=== PATIENT | female | born 1990 | race Caucasian/White ===

== ENCOUNTER → 2016-05-26 | Outpatient (CLI) | payer MEDICAID, OTHER ==
[~2016-05-26] MED LIST: CALNTAB; CITA20TA4 PO; IBUP-232 PO; PREN1TAB PO; ZOFR4TAB3 SL
== END ==
LOC: HPND 12:49
PROVIDERS: ATTEND Obstetrics & Gynecology
DX: O09.32 Supervision of pregnancy with insufficient antenatal care, second trimester (principal); O34.82 Maternal care for other abnormalities of pelvic organs, second trimester; O09.212 Supervision of pregnancy with history of pre-term labor, second trimester; Z3A.20 20 weeks gestation of pregnancy
CPT/HCPCS: 76811

== ENCOUNTER 2016-05-29 21:07 | Observation (INO) | payer MEDICAID ==
[2016-05-29] VITALS (10 sets, daily range): BP systolic 129–155; BP diastolic 42–44; PULSE 95–104
[~2016-05-29] VITALS: Ht 167.6 cm; Wt 140.6 kg
[~2016-05-29 21:07] MED LIST changes: -CITA20TA4 PO; -IBUP-232 PO
[2016-05-29] MEDS: LACTATED RINGER'S 1000 ML INJ 1,000 ML IV SCH (22:03)
--- NOTE | 2016-05-29 22:11 | PD ---
HPI Chief Complaint vaginal bleeding Travel History International Travel<30 Days: No Contact w/Intl Traveler<30Days: No History of Present Illness HPI 25 yo @ 21w1d with CHUCKY 10-08-2016. care at [facility]. complicated by late care, maternal obesity, prior , and noted oligohydramnios at 20 weeks with 2.7cm ERIC. Suboptimal visualization of anatomy at that time. Patient was scheduled for f/u US in one week. Patient presented to the [facility] with c/o a "gush of fluid/blood" and continued light bleeding. She denies cramping, pain. +FM. History Past Medical History Medical History: Denies Significant Hx Obstetric History Obstetric History 2009 Past Surgical History Narrative Surgical Family History Family History: Negative Social History Alcohol Use: No Tobacco Use: Yes Substance Abuse: Yes Allergies-Medications (Allergen,Severity, Reaction): Coded Allergies: No Known Allergies (Verified , 04/29/16) Home Meds Reported Medications Vitamin (Calna)1 Tab Tab 04/29/16 Discontinued Scripts Ondansetron Odt (Zofran Odt)4 Mg Tab4 Mg SL Q6HR PRN (Nausea/Vomiting) #30 TAB Ref 0 Prov:Phylicia Mora CNM [facility] 05/05/16 W/ Calcium-Vit B6-Vit (Prenate Am 1 mg)1 Tab Tab1 Tab PO DAILY #30 BOTTLE Ref 5 Prov:Elle Crawford [facility] 04/29/16 Review of Systems General / Constitutional: No: Fever, Chills Eyes: No: Blurred Vision, Visual changes HENT: No: Headaches, Lightheadedness Cardiovascular: No: Irregular Rhythm, Chest Pain or Discomfort, Palpitations Respiratory: No: Cough, Short of Breath Gastrointestinal: No: Nausea, Vomiting, Diarrhea, Abdominal Pain Genitourinary: Vaginal Bleeding, No: Urgency, Frequency, Dysuria, Discharge Musculoskeletal: No: Limited ROM, Weakness, Cramping, Edema Skin: No Rash, No Itching, No Lesions Neurologic: No: Focal Abnormalities, Coordination Problem Hematologic/Lymphatic: No Easy Bruising, No Lymph Node Enlargement Physical Exam Vital Signs Date Time Temp Pulse Resp B/P Pulse Ox O2 Delivery O2 Flow Rate FiO2 05/29/16 22:40 95 05/29/16 22:36 95 129/44 05/29/16 22:35 96 05/29/16 22:30 98 05/29/16 22:28 98 133/44 05/29/16 22:15 99 05/29/16 22:14 95 155/42 05/29/16 22:10 100 05/29/16 22:05 102 05/29/16 22:00 104 Narrative GENERAL: Well-nourished, well-developed patient. SKIN: Warm and dry. HEAD: Normocephalic and atraumatic. EYES: No scleral icterus. No injection or drainage. ENT: No nasal drainage noted. Mucous membranes pink. Airway patent. NECK: No JVD. CARDIOVASCULAR: Regular rate RESPIRATORY: No accessory muscle use. ABDOMEN/GI: Abdomen soft, non-tender, no rebound, no guarding Gravid GENITOURINARY: External Genitalia: intact and normal in appearance BUS glands: [-] Cervix: grossly normal, no active bleeding from cervical OS, closed Vagina: Small amount of dark blood in posterior vault SVE: closed/thick/high Amnisure ?POS FHT's: 150s EXTREMITIES: No cyanosis or edema. BACK: Nontender without obvious deformity. NEUROLOGICAL: Awake and alert. Motor and sensory grossly within normal limits. Normal speech. Data Data Orders Vital Signs (Adult) .ON ADMISSION (05/29/16 22:01) ^ Labor Status (05/29/16 22:01) Urinalysis - C+S If Indicated (05/29/16 22:01) Wet Prep Profile (05/29/16 22:01) Gc And Chlamydia Pcr (05/29/16 22:01) Pamg-1 Test .ONCE (05/29/16 22:01) Ob (2e) Additional Admit Info (05/29/16 22:02) Place In Observation (05/29/16 ) Diet Liquid (05/30/16 Breakfast) Complete Blood Count With Diff (05/29/16 22:03) Lactated Ringer's 1000 Ml Inj (Lr 1000 M (05/29/16 22:03) Acetaminophen (Tylenol) (05/29/16 22:15) Oarfivkf-Rro-Ojxua-Iron Prenat (Stuartna (05/30/16 09:00) Docusate Sodium (Colace) (05/30/16 09:00) Al-Mag Hy-Si 40-40-4 Mg/Ml Liq (Mag-Al P (05/29/16 22:15) Sodium Chloride 0.9% Flush (Ns Flush) (05/30/16 09:00) Sodium Chloride 0.9% Flush (Ns Flush) (05/29/16 22:15) Zolpidem (Ambien) (05/29/16 22:15) Ondansetron Odt (Zofran Odt) (05/29/16 22:15) Ondansetron Inj (Zofran Inj) (05/29/16 22:15) Us Ob Limited (05/29/16 22:03) Ob/Psych Drug Screen, Urine (05/29/16 22:03) Comprehensive Metabolic Panel (05/29/16 22:03) Labs Laboratory Tests Test 05/29/16 05/29/16 22:05 22:20 White Blood Count 12.7 TH/MM3 (4.0-11.0) Red Blood Count 4.27 MIL/MM3 (4.00-5.30) Hemoglobin 12.3 GM/DL (11.6-15.3) Hematocrit 35.1 % (35.0-46.0) Mean Corpuscular Volume 82.2 FL (80.0-100.0) Mean Corpuscular Hemoglobin 28.9 PG (27.0-34.0) Mean Corpuscular Hemoglobin 35.2 % Concent (32.0-36.0) Red Cell Distribution Width 13.6 % (11.6-17.2) Platelet Count 229 TH/MM3 (150-450) Mean Platelet Volume 8.2 FL (7.0-11.0) Neutrophils (%) (Auto) 66.6 % (16.0-70.0) Lymphocytes (%) (Auto) 24.5 % (9.0-44.0) Monocytes (%) (Auto) 4.8 % (0.0-8.0) Eosinophils (%) (Auto) 3.8 % (0.0-4.0) Basophils (%) (Auto) 0.3 % (0.0-2.0) Neutrophils # (Auto) 8.5 TH/MM3 (1.8-7.7) Lymphocytes # (Auto) 3.1 TH/MM3 (1.0-4.8) Monocytes # (Auto) 0.6 TH/MM3 (0-0.9) Eosinophils # (Auto) 0.5 TH/MM3 (0-0.4) Basophils # (Auto) 0.0 TH/MM3 (0-0.2) CBC Comment DIFF FINAL Differential Comment Clue Cells (Wet Prep) NONE SEEN (NONE) Vaginal Trichomonas (Wet Prep) NONE SEEN (NONE) Vaginal Yeast (Wet Prep) NONE SEEN (NONE) Sodium Level 137 MEQ/L (136-145) Potassium Level 3.8 MEQ/L (3.5-5.1) Chloride Level 102 MEQ/L (98-107) Carbon Dioxide Level 24.3 MEQ/L (21.0-32.0) Anion Gap 11 MEQ/L (5-15) Blood Urea Nitrogen 5 MG/DL (7-18) Creatinine 0.54 MG/DL (0.50-1.00) Estimat Glomerular Filtration 138 ML/MIN Rate (>89) Random Glucose 97 MG/DL (74-106) Calcium Level 8.9 MG/DL (8.5-10.1) Total Bilirubin 0.2 MG/DL (0.2-1.0) Aspartate Amino Transf 7 U/L (15-37) (AST/SGOT) Alanine Aminotransferase 12 U/L (10-53) (ALT/SGPT) Alkaline Phosphatase 95 U/L (45-117) Total Protein 6.7 GM/DL (6.4-8.2) Albumin 2.7 GM/DL (3.4-5.0) Band and Hold Urine Color YELLOW (YELLW/STRAW) Urine Turbidity CLEAR (CLEAR) Urine pH 6.0 (5.0-8.5) Urine Specific [place] 1.028 (1.002-1.035) Urine Protein TRACE mg/dL (NEG-TRACE) Urine Glucose (UA) NEG mg/dL (NEG) Urine Ketones NEG mg/dL (NEG) Urine Occult Blood SMALL (NEG) Urine Nitrite NEG (NEG) Urine Bilirubin NEG (NEG) Urine Urobilinogen 2.0 MG/DL (LESS THAN 2.0) Urine Leukocyte Esterase NEG (NEG) Urine RBC 1 /hpf (0-3) Urine WBC 1 /hpf (0-5) Urine Squamous Epithelial <1 /hpf (0-5) Cells Urine Mucus FEW /lpf (OCC) Microscopic Urinalysis Comment CULT NOT INDICATED Urine Opiates Screen NEG (NEG) Urine Barbiturates Screen NEG (NEG) Urine Amphetamines Screen NEG (NEG) Urine Benzodiazepines Screen NEG (NEG) Urine Cocaine Screen NEG (NEG) Urine Cannabinoids Screen POS (NEG) MDM Medical Record Reviewed: Yes Narrative Course / MDM 21 weeks Late PNC hx oligohydramnios @ 20 weeks vaginal bleeding vs PPROM, Amnisure POS GC/CH pending Wet prep pending IV hydration Repeat US in AM Obesity Borderline BP in [facility] CBC, CMP, RH pending Prior Plan Admit IV hydration Pad count for bleeding, now seems to be resolved ?ROM Hx of oligohydramnios Repeat US in AM Darlin Hunter MD May 29, 2016 22:11
[2016-05-29] MEDS ORDERED: SODIUM CHLORIDE 0.9% FLUSH 10 ML FLUSH IV FLUSH PRN (22:15)
[2016-05-29] MEDS ORDERED: ONDANSETRON HCL 4 MG/2 ML VIAL IV PRN (22:15)
[2016-05-29] MEDS ORDERED: ALUMINUM/MAGNESIUM/SIMETH 30 ML CUP PO PRN (22:15)
[2016-05-29] MEDS ORDERED: ZOLPIDEM TARTRATE 5 MG TAB PO PRN (22:15)
[2016-05-29] MEDS ORDERED: ONDANSETRON ODT 4 MG TAB PO PRN (22:15)
[2016-05-29] MEDS ORDERED: ACETAMINOPHEN 325 MG TAB PO PRN (22:15)
[2016-05-29 22:39] LABS: AUTOMATED NEUTROPHIL # 8.5 TH/MM3 (1.8-7.7); BASOPHIL % 0.3 % (0.0-2.0); EOSINOPHIL # 0.5 TH/MM3 (0-0.4); EOSINOPHIL % 3.8 % (0.0-4.0); HEMATOCRIT 35.1 % (35.0-46.0); HEMO FLAGS DIFF FINAL; LYMPH % 24.5 % (9.0-44.0); LYMPHOCYTE # 3.1 TH/MM3 (1.0-4.8); MEAN CELL VOLUME 82.2 FL (80.0-100.0); MEAN CORPUSCULAR HEMOGLOBIN 28.9 PG (27.0-34.0); MEAN CORPUSCULAR HGB CONC 35.2 % (32.0-36.0); MONO % 4.8 % (0.0-8.0); NEUT % 66.6 % (16.0-70.0); PLATELET COUNT 229 TH/MM3 (150-450); RED BLOOD COUNT 4.27 MIL/MM3 (4.00-5.30); RED CELL DISTRIBUTION WIDTH 13.6 % (11.6-17.2); WHITE BLOOD COUNT 12.7 TH/MM3 (4.0-11.0)
[2016-05-29 22:47] LABS: ALKALINE PHOSPHATASE 95 U/L (45-117); ALT (GPT) 12 U/L (10-53); ANION GAP 11 MEQ/L (5-15); AST (GOT) 7 U/L (15-37); BICARBONATE 24.3 MEQ/L (21.0-32.0); BLOOD UREA NITROGEN 5 MG/DL (7-18); CHLORIDE 102 MEQ/L (98-107); GLOMERULAR FILTRATION RATE 138 ML/MIN (>89); POTASSIUM 3.8 MEQ/L (3.5-5.1); SODIUM (NA) 137 MEQ/L (136-145); TOTAL BILIRUBIN ADULT 0.2 MG/DL (0.2-1.0)
[2016-05-29 23:12] LABS: BLOOD, URINE SMALL (NEG); COMMENT (UR) CULT NOT INDICATED; CULTURE IF INDICATED CULT NOT INDICATED; GLUCOSE,URINE NEG (NEG); KETONE, URINE NEG (NEG); MUCUS URINE FEW /lpf (OCC); NITRITE,URINE NEG (NEG); SQUAMOUS EPITHELIAL CELL URINE <1 /hpf (0-5); URINE COLOR YELLOW (YELLW/STRAW)
[2016-05-29 23:16] LABS: AMPHETAMINE, URINE NEG (NEG); BARBITURATES, URINE NEG (NEG); COCAINE, URINE NEG (NEG)
--- NOTE | 2016-05-29 23:41 | HHI.HP ---
History & Physical H&P HPI HPI Chief Complaint vaginal bleeding Travel History International Travel<30 Days: No Contact w/Intl Traveler<30Days: No History of Present Illness HPI 25 yo @ 21w1d with CHUCKY 10-08-2016. care at [facility]. complicated by late care, maternal obesity, prior , and noted oligohydramnios at 20 weeks with 2.7cm ERIC. Suboptimal visualization of anatomy at that time. Patient was scheduled for f/u US in one week. Patient presented to the [facility] with c/o a "gush of fluid/blood" and continued light bleeding. She denies cramping, pain. +FM. History (Limited) History Past Medical History Medical History: Denies Significant Hx Obstetric History Obstetric History 2009 Past Surgical History Narrative Surgical Family History Family History: Negative Social History Alcohol Use: No Tobacco Use: Yes Substance Abuse: Yes Allergies-Medications Allergies-Medications (Allergen,Severity, Reaction): Coded Allergies: No Known Allergies (Verified , 04/29/16) Home Meds Reported Medications Vitamin (Calna)1 Tab Tab 04/29/16 Discontinued Scripts Ondansetron Odt (Zofran Odt)4 Mg Tab4 Mg SL Q6HR PRN (Nausea/Vomiting) #30 TAB Ref 0 Prov:Phylicia Mora CNM [facility] 05/05/16 W/ Calcium-Vit B6-Vit (Prenate Am 1 mg)1 Tab Tab1 Tab PO DAILY #30 BOTTLE Ref 5 Prov:Elle Crawford [facility] 04/29/16 ROS Review of Systems General / Constitutional: No: Fever, Chills Eyes: No: Blurred Vision, Visual changes HENT: No: Headaches, Lightheadedness Cardiovascular: No: Irregular Rhythm, Chest Pain or Discomfort, Palpitations Respiratory: No: Cough, Short of Breath Gastrointestinal: No: Nausea, Vomiting, Diarrhea, Abdominal Pain Genitourinary: Vaginal Bleeding, No: Urgency, Frequency, Dysuria, Discharge Musculoskeletal: No: Limited ROM, Weakness, Cramping, Edema Skin: No Rash, No Itching, No Lesions Neurologic: No: Focal Abnormalities, Coordination Problem Hematologic/Lymphatic: No Easy Bruising, No Lymph Node Enlargement Physical Exam Physical Exam Vital Signs Date Time Temp Pulse Resp B/P Pulse Ox O2 Delivery O2 Flow Rate FiO2 05/29/16 22:40 95 05/29/16 22:36 95 129/44 05/29/16 22:35 96 05/29/16 22:30 98 05/29/16 22:28 98 133/44 05/29/16 22:15 99 05/29/16 22:14 95 155/42 05/29/16 22:10 100 05/29/16 22:05 102 05/29/16 22:00 104 Narrative GENERAL: Well-nourished, well-developed patient. SKIN: Warm and dry. HEAD: Normocephalic and atraumatic. EYES: No scleral icterus. No injection or drainage. ENT: No nasal drainage noted. Mucous membranes pink. Airway patent. NECK: No JVD. CARDIOVASCULAR: Regular rate RESPIRATORY: No accessory muscle use. ABDOMEN/GI: Abdomen soft, non-tender, no rebound, no guarding Gravid GENITOURINARY: External Genitalia: intact and normal in appearance BUS glands: [-] Cervix: grossly normal, no active bleeding from cervical OS, closed Vagina: Small amount of dark blood in posterior vault SVE: closed/thick/high Amnisure ?POS FHT's: 150s EXTREMITIES: No cyanosis or edema. BACK: Nontender without obvious deformity. NEUROLOGICAL: Awake and alert. Motor and sensory grossly within normal limits. Normal speech. Data Data Data Orders Vital Signs (Adult) .ON ADMISSION (05/29/16 22:01) ^ Labor Status (05/29/16 22:01) Urinalysis - C+S If Indicated (05/29/16 22:01) Wet Prep Profile (05/29/16 22:01) Gc And Chlamydia Pcr (05/29/16 22:01) Pamg-1 Test .ONCE (05/29/16 22:01) Ob (2e) Additional Admit Info (05/29/16 22:02) Place In Observation (05/29/16 ) Diet Liquid (05/30/16 Breakfast) Complete Blood Count With Diff (05/29/16 22:03) Lactated Ringer's 1000 Ml Inj (Lr 1000 M (05/29/16 22:03) Acetaminophen (Tylenol) (05/29/16 22:15) Autjfkwu-Rtm-Nfutx-Iron Prenat (Stuartna (05/30/16 09:00) Docusate Sodium (Colace) (05/30/16 09:00) Al-Mag Hy-Si 40-40-4 Mg/Ml Liq (Mag-Al P (05/29/16 22:15) Sodium Chloride 0.9% Flush (Ns Flush) (05/30/16 09:00) Sodium Chloride 0.9% Flush (Ns Flush) (05/29/16 22:15) Zolpidem (Ambien) (05/29/16 22:15) Ondansetron Odt (Zofran Odt) (05/29/16 22:15) Ondansetron Inj (Zofran Inj) (05/29/16 22:15) Us Ob Limited (05/29/16 22:03) Ob/Psych Drug Screen, Urine (05/29/16 22:03) Comprehensive Metabolic Panel (05/29/16 22:03) Labs Laboratory Tests Test 05/29/16 05/29/16 22:05 22:20 White Blood Count 12.7 TH/MM3 (4.0-11.0) Red Blood Count 4.27 MIL/MM3 (4.00-5.30) Hemoglobin 12.3 GM/DL (11.6-15.3) Hematocrit 35.1 % (35.0-46.0) Mean Corpuscular Volume 82.2 FL (80.0-100.0) Mean Corpuscular Hemoglobin 28.9 PG (27.0-34.0) Mean Corpuscular Hemoglobin 35.2 % Concent (32.0-36.0) Red Cell Distribution Width 13.6 % (11.6-17.2) Platelet Count 229 TH/MM3 (150-450) Mean Platelet Volume 8.2 FL (7.0-11.0) Neutrophils (%) (Auto) 66.6 % (16.0-70.0) Lymphocytes (%) (Auto) 24.5 % (9.0-44.0) Monocytes (%) (Auto) 4.8 % (0.0-8.0) Eosinophils (%) (Auto) 3.8 % (0.0-4.0) Basophils (%) (Auto) 0.3 % (0.0-2.0) Neutrophils # (Auto) 8.5 TH/MM3 (1.8-7.7) Lymphocytes # (Auto) 3.1 TH/MM3 (1.0-4.8) Monocytes # (Auto) 0.6 TH/MM3 (0-0.9) Eosinophils # (Auto) 0.5 TH/MM3 (0-0.4) Basophils # (Auto) 0.0 TH/MM3 (0-0.2) CBC Comment DIFF FINAL Differential Comment Clue Cells (Wet Prep) NONE SEEN (NONE) Vaginal Trichomonas (Wet Prep) NONE SEEN (NONE) Vaginal Yeast (Wet Prep) NONE SEEN (NONE) Sodium Level 137 MEQ/L (136-145) Potassium Level 3.8 MEQ/L (3.5-5.1) Chloride Level 102 MEQ/L (98-107) Carbon Dioxide Level 24.3 MEQ/L (21.0-32.0) Anion Gap 11 MEQ/L (5-15) Blood Urea Nitrogen 5 MG/DL (7-18) Creatinine 0.54 MG/DL (0.50-1.00) Estimat Glomerular Filtration 138 ML/MIN Rate (>89) Random Glucose 97 MG/DL (74-106) Calcium Level 8.9 MG/DL (8.5-10.1) Total Bilirubin 0.2 MG/DL (0.2-1.0) Aspartate Amino Transf 7 U/L (15-37) (AST/SGOT) Alanine Aminotransferase 12 U/L (10-53) (ALT/SGPT) Alkaline Phosphatase 95 U/L (45-117) Total Protein 6.7 GM/DL (6.4-8.2) Albumin 2.7 GM/DL (3.4-5.0) Band and Hold Urine Color YELLOW (YELLW/STRAW) Urine Turbidity CLEAR (CLEAR) Urine pH 6.0 (5.0-8.5) Urine Specific [place] 1.028 (1.002-1.035) Urine Protein TRACE mg/dL (NEG-TRACE) Urine Glucose (UA) NEG mg/dL (NEG) Urine Ketones NEG mg/dL (NEG) Urine Occult Blood SMALL (NEG) Urine Nitrite NEG (NEG) Urine Bilirubin NEG (NEG) Urine Urobilinogen 2.0 MG/DL (LESS THAN 2.0) Urine Leukocyte Esterase NEG (NEG) Urine RBC 1 /hpf (0-3) Urine WBC 1 /hpf (0-5) Urine Squamous Epithelial <1 /hpf (0-5) Cells Urine Mucus FEW /lpf (OCC) Microscopic Urinalysis Comment CULT NOT INDICATED Urine Opiates Screen NEG (NEG) Urine Barbiturates Screen NEG (NEG) Urine Amphetamines Screen NEG (NEG) Urine Benzodiazepines Screen NEG (NEG) Urine Cocaine Screen NEG (NEG) Urine Cannabinoids Screen POS (NEG) MDM MDM Medical Record Reviewed: Yes Narrative Course / MDM 21 weeks Late PNC hx oligohydramnios @ 20 weeks vaginal bleeding vs PPROM, Amnisure POS GC/CH pending Wet prep pending IV hydration Repeat US in AM Obesity Borderline BP in [facility] CBC, CMP, RH pending Prior Plan Admit IV hydration Pad count for bleeding, now seems to be resolved ?ROM Hx of oligohydramnios Repeat US in AM Darlin Hunter MD May 29, 2016 22:11 Darlin Hunter MD May 29, 2016 23:41
[2016-05-30] VITALS (69 sets, daily range): BP systolic 124–128; BP diastolic 43–61; PULSE 79–96; RESP 16–18; TEMP 98–98.2
[2016-05-30] MEDS: LACTATED RINGER'S 1000 ML INJ 1,000 ML IV SCH (00:48)
[2016-05-30 04:57] LABS: CHLAMYDIA PCR NOT DETECTED (NOT DETECT); NEISSERIA PCR NOT DETECTED (NOT DETECT)
[2016-05-30] MEDS ORDERED: SODIUM CHLORIDE 0.9% FLUSH 10 ML FLUSH IV FLUSH SCH (09:00)
[2016-05-30] MEDS ORDERED: MULTIVIT/MIN/PREN/FOL AC/IRON PRENATAL TAB PO SCH (09:00)
[2016-05-30] MEDS ORDERED: DOCUSATE SODIUM 100 MG CAP PO SCH (09:00)
--- NOTE | 2016-05-30 09:45 | PD.OB.ANTE ---
Subjective Antepartum ROS: Reports: Vaginal bleeding (scant bleeding earlier this AM. No current VB.), movement normal (+), Denies: New complaints, Loss of fluid, Contractions Objective Vital Signs Vital Signs Date Time Temp Pulse Resp B/P Pulse Ox O2 Delivery O2 Flow Rate FiO2 05/30/16 08:55 91 05/30/16 07:00 128/61 05/30/16 07:00 98.0 05/30/16 07:00 16 Lab & Micro Results Test 05/29/16 05/29/16 22:05 22:20 White Blood Count 12.7 TH/MM3 Red Blood Count 4.27 MIL/MM3 Hemoglobin 12.3 GM/DL Hematocrit 35.1 % Mean Corpuscular Volume 82.2 FL Mean Corpuscular Hemoglobin 28.9 PG Mean Corpuscular Hemoglobin 35.2 % Concent Red Cell Distribution Width 13.6 % Platelet Count 229 TH/MM3 Mean Platelet Volume 8.2 FL Neutrophils (%) (Auto) 66.6 % Lymphocytes (%) (Auto) 24.5 % Monocytes (%) (Auto) 4.8 % Eosinophils (%) (Auto) 3.8 % Basophils (%) (Auto) 0.3 % Neutrophils # (Auto) 8.5 TH/MM3 Lymphocytes # (Auto) 3.1 TH/MM3 Monocytes # (Auto) 0.6 TH/MM3 Eosinophils # (Auto) 0.5 TH/MM3 Basophils # (Auto) 0.0 TH/MM3 CBC Comment DIFF FINAL Differential Comment Clue Cells (Wet Prep) NONE SEEN Vaginal Trichomonas (Wet Prep) NONE SEEN Vaginal Yeast (Wet Prep) NONE SEEN Sodium Level 137 MEQ/L Potassium Level 3.8 MEQ/L Chloride Level 102 MEQ/L Carbon Dioxide Level 24.3 MEQ/L Anion Gap 11 MEQ/L Blood Urea Nitrogen 5 MG/DL Creatinine 0.54 MG/DL Estimat Glomerular Filtration 138 ML/MIN Rate Random Glucose 97 MG/DL Calcium Level 8.9 MG/DL Total Bilirubin 0.2 MG/DL Aspartate Amino Transf 7 U/L (AST/SGOT) Alanine Aminotransferase 12 U/L (ALT/SGPT) Alkaline Phosphatase 95 U/L Total Protein 6.7 GM/DL Albumin 2.7 GM/DL Band and Hold Urine Color YELLOW Urine Turbidity CLEAR Urine pH 6.0 Urine Specific [place] 1.028 Urine Protein TRACE mg/dL Urine Glucose (UA) NEG mg/dL Urine Ketones NEG mg/dL Urine Occult Blood SMALL Urine Nitrite NEG Urine Bilirubin NEG Urine Urobilinogen 2.0 MG/DL Urine Leukocyte Esterase NEG Urine RBC 1 /hpf Urine WBC 1 /hpf Urine Squamous Epithelial <1 /hpf Cells Urine Mucus FEW /lpf Microscopic Urinalysis Comment CULT NOT INDICATED Urine Opiates Screen NEG Urine Barbiturates Screen NEG Urine Amphetamines Screen NEG Urine Benzodiazepines Screen NEG Urine Cocaine Screen NEG Urine Cannabinoids Screen POS Chlamydia trachomatis DNA NOT DETECTED (PCR) Neisseria gonorrhoeae DNA NOT DETECTED (PCR) Physical Exam GENERAL: Well-nourished, well-developed patient. CARDIOVASCULAR: Regular rate RESPIRATORY: No accessory muscle use. ABDOMEN/GI: Abdomen soft, non-tender. GENITOURINARY: Current pad, no bleeding US: +FHR US: preliminary reading, awaiting MFM call Assessment and Plan Assessment and Plan Oligohydramnios and vaginal bleeding VB stable. Prior US had noted a separation b/w membranes and possible etiology of current bleeding. Sol placenta and cervix. Continued oligohydramnios 2-3cm Unlikely ROM MFM reading pending Will have MFM formal consultation 06/03 Rh+, labs WNL Darlin Hunter MD May 30, 2016 09:45
--- NOTE | 2016-05-30 14:19 | HHI.PR ---
[employer] Note Note Ultrasound repeated today with no change in ERIC 2.5. Patient still with spotting so amnisure is positive but no visualized fluid noted, ferning negative. Suspect false positive amnisure due to presence of blood. Reevaluation notes negative ferning, no fluid per exam. Dr Moore has also reviewed ultrasound. Will discharge patient with precautions to return to hospital for vaginal bleeding, abdominal pain, fluid per vagina. Oligohydramnios in this previable continues to be concerning and needs close followup. Patient has appointment with M on Thursday at 1:30pm. Ava Naqvi MD May 30, 2016 14:19
--- NOTE | 2016-05-30 14:20 | HHI.DCPOC ---
Discharge Care Plan Diagnosis: (1) Vagina bleeding (2) Oligohydramnios antepartum (3) Separation of chorion and amnion membranes, antepartum Report Symptoms to Your Doctor -Temperate above 100.5 degrees -Redness, of incision or excessive or foul smelling drainage -Unusual pain or calf pain -Increased vaginal bleeding -Painful or difficulty urinating -Feelings of extreme sadness or anxiety after 2 weeks Goals to Promote Your Health * To prevent worsening of your condition and complications * To maintain your health at the optimal level Directions to Meet Your Goals Take your medications as prescribed Follow your dietary instruction Follow activity as directed Ensure plenty of rest for recovery Drink fluids for hydration Keep your appointments as scheduled Take your immunizations and boosters as scheduled If your symptoms worsen call your PCP, if no PCP go to Urgent Care Center or Emergency Room Smoking is Dangerous to Your Health. Avoid second hand smoke Call the 24-hour crisis hotline for domestic abuse at Marycruz Stevens MD R1 May 30, 2016 14:20
--- NOTE | 2016-05-30 14:23 | HHI.DS ---
Admission Date May 29, 2016 at 22:05 Discharge Date: May 30, 2016 Admitting Diagnosis 21 weeks gestation Oligohydramnios Vaginal bleeding Previous section Diagnosis: Brief History 25 yo @ 21w1d with CHUCKY 10-08-2016. care at [facility]. complicated by late care, maternal obesity, prior , and noted oligohydramnios at 20 weeks with 2.7cm ERIC. Suboptimal visualization of anatomy at that time. Patient was scheduled for f/u US in one week. Patient presented to the [facility] with c/o a "gush of fluid/blood" and continued light bleeding. She denies cramping, pain. +FM. Hospital Course at 21 weeks 1 day with oligohydramnios in this . Patient had some mild vaginal bleeding with a false positive amnisure. No other tests were indicative of a rupture membranes with negative ferning and no fluid noted on exam. Patient additionally repeat ultrasound showed no change in her amniotic fluid index. Patient will be discharged home with close follow-up and has an appointment to maternal medicine on Thursday at 1:30. She was given strong precautions to return to the hospital for bright red vaginal bleeding and more than small amounts, possible rupture membranes, or abdominal pain. Pt Condition on Discharge: Good Discharge Disposition: Discharge Home Discharge Instructions Diet Instructions: As Tolerated, No Restrictions Activities You Can Perform: Pelvic Rest, Continue Bedrest (modified bedrest is recommended) Ava Naqvi MD May 30, 2016 14:23
[2016-06-04 09:41] LABS: BATH SALTS (MDPV) UR NEG (NEG); ECSTASY (MDMA) UR NEG (NEG); HEROIN (6-ACETYLMORPHINE) UR NEG (NEG); K2 SPICE UR NEG (NEG); OBMETHADONE UR NEG (NEG); OXYCODONE (PERCODAN) NEG (NEG); PHENCYCLIDINE URINE NEG (NEG)
[2016-06-04 09:42] LABS: GABAPENTIN UR NEG (NEG); HYDROMORPHONE U NEG (NEG)
[2016-06-11] MEDS ORDERED: CITA20TA4 PO (15:07)
== END 2016-05-30 15:15 | disposition home or self-care (01) ==
LOC: HOBED 21:07 → H2EA 22:05
PROVIDERS: ADMIT Obstetrics & Gynecology; ATTEND Obstetrics & Gynecology
DX: Z03.89 Encounter for observation for other suspected diseases and conditions ruled out (principal); O67.8 Other intrapartum hemorrhage; O41.02X0 Oligohydramnios, second trimester, not applicable or unspecified; O99.212 Obesity complicating pregnancy, second trimester; O09.32 Supervision of pregnancy with insufficient antenatal care, second trimester; O99.332 Smoking (tobacco) complicating pregnancy, second trimester; F17.210 Nicotine dependence, cigarettes, uncomplicated; Z3A.21 21 weeks gestation of pregnancy
CPT/HCPCS: 76815; 80053; 80307; 81001; 84112; 85025; 87210; 87491; 87591; 99285; G0378; G0481; J7120; 80348; G0480

== ENCOUNTER 2016-05-31 14:53 | Observation (INO) | payer MEDICAID ==
[~2016-05-31] VITALS: Ht 167.6 cm; Wt 141.0 kg
[~2016-05-31 14:53] MED LIST changes: -PREN1TAB PO; -ZOFR4TAB3 SL
--- NOTE | 2016-05-31 16:14 | HHI.HP ---
HPI Chief Complaint Vaginal bleeding and cramping Date Seen: May 31, 2016 Travel History International Travel<30 Days: No Contact w/Intl Traveler<30Days: No Known Affected Area: No History of Present Illness HPI This patient is 25-year-old white female previous 1 now at 21 weeks ,[facility] who presents for vaginal bleeding and cramping. Patient was here for a 24-hour stay on the and went home on the because she was here for bleeding that decreased to the point of essentially no discharge vaginally and was sent home however the patient says when she went home she was home for less than a day when she started cramping and a bleeding H she describes as" gushing out" blood, the patient was the hospital she had a vaginal bleeding that the amnio sure was unreadable, so no definitive diagnosis of PPROM was made however ultrasounds done on 05/26 and on were consistent with oligohydramnios, with ERIC of 2.7 on 05/26 Para: 1 : 2 History Obstetric History Obstetric History 1 for failure to progress in [facility] Past Surgical History Narrative Surgical 1 Social History Narrative Social History Patient smokes half pack cigarettes a day Alcohol Use: No Tobacco Use: Yes Substance Abuse: No Allergies-Medications (Allergen,Severity, Reaction): Coded Allergies: No Known Allergies (Verified , 04/29/16) Home Meds Reported Medications Vitamin (Calna)1 Tab Tab 04/29/16 Discontinued Scripts Ondansetron Odt (Zofran Odt)4 Mg Tab4 Mg SL Q6HR PRN (Nausea/Vomiting) #30 TAB Ref 0 Prov:Phylicia Mora CNMP 05/05/16 W/ Calcium-Vit B6-Vit (Prenate Am 1 mg)1 Tab Tab1 Tab PO DAILY #30 BOTTLE Ref 5 Prov:Elle Crawford 04/29/16 Review of Systems General / Constitutional: No: Fever, Weight Gain, Chills, Other Eyes: No: Diploplia, Blurred Vision, Visual changes, Pain, Photophobia HENT: No: Headaches, Vertigo, Lightheadedness Cardiovascular: No: Irregular Rhythm, Chest Pain or Discomfort, Palpitations, Tachycardia, Syncope, Varicosities, Edema, Cyanosis Respiratory: No: Cough, Short of Breath, Other Gastrointestinal: Abdominal Pain, No: Nausea, Vomiting, Diarrhea Genitourinary: Vaginal Bleeding, No: Decreased Urinary Output, Oliguria Musculoskeletal: No: Limited ROM, Weakness, Cramping, Edema, Pain Skin: No Rash, No Itching, No Dryness, No Lumps, No Change in Pigmentation, No Change in Nails, No Alopecia, No Lesions Neurologic: No: Weakness, Dizziness, Syncope, Focal Abnormalities, Coordination Problem, Headache, Slurred Speech, Seizures Psychiatric: No: Depression, Suicidal Ideations, Homicidal Ideation Endocrine: No: Heat Intolerance, Cold Intolerance, Polydipsia, Polyuria, Other Physical Exam Narrative GENERAL obese, well-developed patient. In no acute distress SKIN: Warm and dry. HEAD: Normocephalic and atraumatic. EYES: No scleral icterus. No injection or drainage. ENT: No nasal drainage noted. Mucous membranes pink. Airway patent. NECK: Supple, trachea midline. No JVD. CARDIOVASCULAR: Regular rate and rhythm without murmurs, gallops, or rubs. RESPIRATORY: Breath sounds equal bilaterally. No accessory muscle use. BREASTS: Bilateral exam showed no masses , no retractions, no nipple discharge. ABDOMEN/GI: Abdomen soft obese with large pannus, non-tender, bowel sounds present, no rebound, no guarding Gravid to [-20] weeks size Fundal Height: [At umbilicus-] GENITOURINARY: External Genitalia: intact and normal in appearance Vagina was visualized the speculum and there is a small amount of old blood and present in the fornix, no active bleeding noted no blood clots Cervix: [-Closed] Dilatation: [Closed-] Effacement: [-] Thick Station: [-3] Presentation: [vtx by US-] Membranes: [ ruptured] there is no reliable amnio sure present and because of bleeding that's been undoable Otf with patient's history of gushing fluid and blood in the fact that very little fluid seen on ultrasound it is very likely that she has had a rupture the membranes prematurely Uterine Contractions: [none-] FHT's: 133 EXTREMITIES: No cyanosis or edema. BACK: Nontender without obvious deformity. No CVA tenderness. NEUROLOGICAL: Awake and alert. Motor and sensory grossly within normal limits. Five out of 5 muscle strength in all muscle groups. Normal speech. Data Data Orders Ob Poc Ultrasound (05/31/16 ) Labs Ultrasound done at bedside today shows a fetus in the vertex presentation 21 weeks 1 day and size by growth measurements EFW -413 gm , cardiac motion 135, there is marked oligohydramnios only one small pocket of fluid was seen., Placenta grade 0 and left fundal and lateral. Assessment/Plan Assessment and Plan This patient is 25-year-old white female previous 1 now at 21 weeks by good gestational criteria with vaginal bleeding " gushing " as she describes it and marked oligohydramnios in the second trimester, now developing abdominal pain and cramps. With this patient's history is almost certain that she's had PPROM at 21 weeks, we may be able to attempt a fern of the vaginal discharge to confirm that, that test is in process as we speak . Plan to admit the patient for inpatient care for this problem provide IV antibiotics, pain medication as needed and unfortunately it may be that she has a vaginal delivery in the very near future because of this. All these aspects of been described to the patient she understands our evaluation and care Glen Dudley II, MD May 31, 2016 16:14
[2016-05-31] MEDS ORDERED: ONDANSETRON ODT 4 MG TAB PO PRN (16:15)
[2016-05-31] MEDS ORDERED: ONDANSETRON HCL 4 MG/2 ML VIAL IV PRN (16:15)
[2016-05-31] MEDS ORDERED: ALUMINUM/MAGNESIUM/SIMETH 30 ML CUP PO PRN (16:15)
[2016-05-31] MEDS ORDERED: ACETAMINOPHEN 325 MG TAB PO PRN (16:15)
--- NOTE | 2016-05-31 16:47 | PD.OB.ANTE ---
Subjective Interval History Speculum exam done to collect fluid for fern, on visualizing the vagina bloody watery fluid filled the upper vagina and was briskly coming thru the cx, consistent with PPROM , fern was collected but all that was seen was red blood cells no ferns seen Antepartum ROS: Reports: Loss of fluid, Vaginal bleeding Objective Physical Exam GENERAL: Well-nourished, well-developed patient. CARDIOVASCULAR: Regular rate and rhythm without murmurs, gallops, or rubs. RESPIRATORY: Breath sounds equal bilaterally. No accessory muscle use. ABDOMEN/GI: Abdomen soft, non-tender. Fundus: [-] GENITOURINARY: External Genitalia: intact and normal in appearance Cervix: [-] Dilatation: [-] Effacement: [-] Station: [-] Presentation: [-] Membranes: [-] Uterine Contractions: [-] FHT's: Category: [-] Baseline: [-] Reactive: [-] Variability: [-] Decels: [-] EXTREMITIES: No cyanosis or edema, non-tender, without signs of DVT. Assessment and Plan Assessment and Plan This patient is 25-year-old white female previous 1 now at 21 weeks by good gestational criteria with vaginal bleeding " gushing " as she describes it and marked oligohydramnios in the second trimester, now developing abdominal pain and cramps. With this patient's history is almost certain that she's had PPROM at 21 weeks, we may be able to attempt a fern of the vaginal discharge to confirm that, that test is in process as we speak . Plan to admit the patient for inpatient care for this problem provide IV antibiotics, pain medication as needed and unfortunately it may be that she has a vaginal delivery in the very near future because of this. All these aspects of been described to the patient she understands our evaluation and care Glen Dudley II, MD May 31, 2016 16:47
[2016-05-31] MEDS: cefTRIAXone INJ 1,000 MG in SODIUM CHLORIDE 0.9% INJ 100 ML IV SCH (17:30)
[2016-05-31] MEDS: SODIUM CHLORIDE 0.9% FLUSH 10 ML FLUSH IV FLUSH PRN (17:31)
[2016-05-31 18:34] LABS: AUTOMATED NEUTROPHIL # 8.8 TH/MM3 (1.8-7.7); BASOPHIL # 0.1 TH/MM3 (0-0.2); BASOPHIL % 0.4 % (0.0-2.0); EOSINOPHIL # 0.4 TH/MM3 (0-0.4); EOSINOPHIL % 2.9 % (0.0-4.0); HEMO FLAGS DIFF FINAL; LYMPH % 21.3 % (9.0-44.0); LYMPHOCYTE # 2.6 TH/MM3 (1.0-4.8); MEAN CELL VOLUME 83.1 FL (80.0-100.0); MEAN CORPUSCULAR HEMOGLOBIN 28.1 PG (27.0-34.0); MEAN CORPUSCULAR HGB CONC 33.7 % (32.0-36.0); MONO % 4.2 % (0.0-8.0); NEUT % 71.2 % (16.0-70.0); PLATELET COUNT 239 TH/MM3 (150-450); RED BLOOD COUNT 4.57 MIL/MM3 (4.00-5.30); RED CELL DISTRIBUTION WIDTH 13.5 % (11.6-17.2); WHITE BLOOD COUNT 12.3 TH/MM3 (4.0-11.0)
[2016-05-31 18:58] LABS: ANION GAP 12 MEQ/L (5-15); AST (GOT) 9 U/L (15-37); BICARBONATE 21.2 MEQ/L (21.0-32.0); BLOOD UREA NITROGEN 3 MG/DL (7-18); CHLORIDE 103 MEQ/L (98-107); GLOMERULAR FILTRATION RATE 170 ML/MIN (>89); POTASSIUM 3.5 MEQ/L (3.5-5.1); SODIUM (NA) 136 MEQ/L (136-145)
[2016-05-31 19:02] LABS: ALKALINE PHOSPHATASE 96 U/L (45-117); ALT (GPT) 11 U/L (10-53); TOTAL BILIRUBIN ADULT 0.3 MG/DL (0.2-1.0)
[2016-05-31 19:46] VITALS: TEMP 98
[2016-05-31 19:47] VITALS: BP 127/54; PULSE 85; RESP 18
[2016-05-31 20:47] LABS: BLOOD, URINE MOD (NEG); COMMENT (UR) CULT NOT INDICATED; CULTURE IF INDICATED CULT NOT INDICATED; GLUCOSE,URINE NEG (NEG); KETONE, URINE 10 mg/dL (NEG); MUCUS URINE MANY /lpf (OCC); NITRITE,URINE NEG (NEG); PH, URINE 6.5 (5.0-8.5); SQUAMOUS EPITHELIAL CELL URINE 1 /hpf (0-5); URINE COLOR YELLOW (YELLW/STRAW)
[2016-05-31 20:59] LABS: AMPHETAMINE, URINE NEG (NEG); BARBITURATES, URINE NEG (NEG); COCAINE, URINE NEG (NEG)
[2016-05-31] MEDS: SODIUM CHLORIDE 0.9% FLUSH 10 ML FLUSH IV FLUSH SCH (21:34)
[2016-05-31] MEDS: FERROUS SULFATE 325 MG (65 MG ELEMENTAL IRON) TAB PO SCH (21:34)
[2016-05-31 23:23] VITALS: BP 116/45; PULSE 82
[2016-05-31 23:25] VITALS: RESP 18; TEMP 98.4
[2016-06-01] VITALS (7 sets, daily range): BP systolic 134–143; BP diastolic 45–65; PULSE 83–108; RESP 18; TEMP 97.9–98.3
[2016-06-01] MEDS: FERROUS SULFATE 325 MG (65 MG ELEMENTAL IRON) TAB PO SCH (09:15)
[2016-06-01] MEDS: MULTIVIT/MIN/PREN/FOL AC/IRON PRENATAL TAB PO SCH (09:15)
[2016-06-01] MEDS: DOCUSATE SODIUM 100 MG CAP PO SCH (09:15)
[2016-06-01] MEDS: SODIUM CHLORIDE 0.9% FLUSH 10 ML FLUSH IV FLUSH SCH (09:16)
--- NOTE | 2016-06-01 09:21 | PD.OB.ANTE ---
Subjective Interval History Denies feeling any contractions, denies vaginal bleeding, still feeling movement. Denies any fevers or chills. Antepartum ROS: Reports: movement normal, Denies: New complaints, Loss of fluid, Vaginal bleeding, Contractions Objective Vital Signs Vital Signs Date Time Temp Pulse Resp B/P Pulse Ox O2 Delivery O2 Flow Rate FiO2 06/01/16 09:12 18 06/01/16 09:09 98.3 05/31/16 23:25 18 05/31/16 23:25 98.4 05/31/16 23:23 82 116/45 05/31/16 19:47 18 05/31/16 19:47 85 127/54 05/31/16 19:46 98.0 Lab & Micro Results Test 05/31/16 05/31/16 17:15 19:15 White Blood Count 12.3 TH/MM3 Red Blood Count 4.57 MIL/MM3 Hemoglobin 12.8 GM/DL Hematocrit 38.0 % Mean Corpuscular Volume 83.1 FL Mean Corpuscular Hemoglobin 28.1 PG Mean Corpuscular Hemoglobin 33.7 % Concent Red Cell Distribution Width 13.5 % Platelet Count 239 TH/MM3 Mean Platelet Volume 8.3 FL Neutrophils (%) (Auto) 71.2 % Lymphocytes (%) (Auto) 21.3 % Monocytes (%) (Auto) 4.2 % Eosinophils (%) (Auto) 2.9 % Basophils (%) (Auto) 0.4 % Neutrophils # (Auto) 8.8 TH/MM3 Lymphocytes # (Auto) 2.6 TH/MM3 Monocytes # (Auto) 0.5 TH/MM3 Eosinophils # (Auto) 0.4 TH/MM3 Basophils # (Auto) 0.1 TH/MM3 CBC Comment DIFF FINAL Differential Comment Sodium Level 136 MEQ/L Potassium Level 3.5 MEQ/L Chloride Level 103 MEQ/L Carbon Dioxide Level 21.2 MEQ/L Anion Gap 12 MEQ/L Blood Urea Nitrogen 3 MG/DL Creatinine 0.45 MG/DL Estimat Glomerular Filtration 170 ML/MIN Rate Random Glucose 92 MG/DL Calcium Level 8.9 MG/DL Total Bilirubin 0.3 MG/DL Aspartate Amino Transf 9 U/L (AST/SGOT) Alanine Aminotransferase 11 U/L (ALT/SGPT) Alkaline Phosphatase 96 U/L Total Protein 7.1 GM/DL Albumin 2.8 GM/DL Band and Hold Urine Color YELLOW Urine Turbidity CLEAR Urine pH 6.5 Urine Specific [place] 1.025 Urine Protein TRACE mg/dL Urine Glucose (UA) NEG mg/dL Urine Ketones 10 mg/dL Urine Occult Blood MOD Urine Nitrite NEG Urine Bilirubin NEG Urine Urobilinogen LESS THAN 2.0 MG/DL Urine Leukocyte Esterase TRACE Urine RBC 2 /hpf Urine WBC 2 /hpf Urine Squamous Epithelial 1 /hpf Cells Urine Mucus MANY /lpf Microscopic Urinalysis Comment CULT NOT INDICATED Urine Opiates Screen NEG Urine Barbiturates Screen NEG Urine Amphetamines Screen NEG Urine Benzodiazepines Screen NEG Urine Cocaine Screen NEG Urine Cannabinoids Screen POS Physical Exam GENERAL: Well-nourished, well-developed patient. CARDIOVASCULAR: Regular rate and rhythm without murmurs, gallops, or rubs. RESPIRATORY: Breath sounds equal bilaterally. No accessory muscle use. ABDOMEN/GI: Abdomen soft, non-tender. EXTREMITIES: No cyanosis or edema, non-tender, without signs of DVT. Assessment and Plan Assessment and Plan This patient is 25-year-old white female previous 1 now at 21 weeks by good gestational criteria with vaginal bleeding "gushing " as she describes it and marked oligohydramnios (2.7 cm) in the second trimester, now developing abdominal pain and cramps. With this patient's history is almost certain that she's had PPROM at 21 weeks. U/S from 05/27 showed ERIC of 2.7 cm, and small separation of the amnion at the lateral edge of the placenta. Plan as below: PPROM at 21 weeks: -Admit to in-patient. Vaginal bleeding and contractions have resolved (per patient). -Cont intermittent FHTs and [place]. -Continue ABX (Ceftriaxone 1 g q 24 hr, first dose 05/31 at 1700). -Unfortunately it may be that she has a vaginal delivery in the very near future because of this. All these aspects of been described to the patient she understands our evaluation and care. ricky Dudely. Horace Armenta MD R2 Jun 01, 2016 09:21
[2016-06-01] MEDS: SODIUM CHLORIDE 0.9% FLUSH 10 ML FLUSH IV FLUSH PRN (16:58)
[2016-06-01] MEDS: cefTRIAXone INJ 1,000 MG in SODIUM CHLORIDE 0.9% INJ 100 ML IV SCH (16:59)
[2016-06-02] VITALS (11 sets, daily range): BP systolic 138–158; BP diastolic 55–58; PULSE 84–96; RESP 18; TEMP 98.3
[2016-06-02] MEDS: MULTIVIT/MIN/PREN/FOL AC/IRON PRENATAL TAB PO SCH (08:29)
[2016-06-02] MEDS: FERROUS SULFATE 325 MG (65 MG ELEMENTAL IRON) TAB PO SCH ×2 (08:29→21:00)
[2016-06-02] MEDS: DOCUSATE SODIUM 100 MG CAP PO SCH (08:29)
[2016-06-02] MEDS: SODIUM CHLORIDE 0.9% FLUSH 10 ML FLUSH IV FLUSH SCH ×2 (09:56→21:00)
--- NOTE | 2016-06-02 10:43 | PD.OB.ANTE ---
Subjective Diagnosis: (1) Vaginal bleeding Diagnosis: Principal (2) Oligohydramnios antepartum Diagnosis: Secondary Interval History Ms. Epperson was afebrile with stable vital signs overnight. Patient reports continued vaginal bleeding; patient states this is intermittent and based on positional changes. Patient denies contractions or abdominal cramping. Patient reported normal movement this morning. Patient requests ambulation outdoors if possible today. Antepartum ROS: Reports: Vaginal bleeding (Adilson Del Rio MD R2) Objective Vital Signs Vital Signs Date Time Temp Pulse Resp B/P Pulse Ox O2 Delivery O2 Flow Rate FiO2 06/01/16 22:48 18 06/01/16 22:48 98.3 83 143/61 06/01/16 20:21 98.3 18 06/01/16 20:19 88 138/60 06/01/16 12:41 98 134/65 06/01/16 12:41 97.9 18 Lab & Micro Results Test 06/02/16 08:19 Blood Type O POSITIVE Blood Bank Comment Physical Exam GENERAL: Well-nourished, well-developed patient. CARDIOVASCULAR: Regular rate and rhythm without murmurs; normal perfusion RESPIRATORY: CTAB, normal rate ABDOMEN/GI: Abdomen soft, non-tender. Gravid EXTREMITIES: No cyanosis or edema, non-tender, without signs of DVT. GENITOURINARY: (Last exam 05/31) External Genitalia: intact and normal in appearance Cervix: Dilatation: 0 Membranes: Intact Uterine Contractions: None per patient FHT's: (intermittent) Category: 1 Baseline: 145 Reactive: Y (Adilson Del Rio MD R2) Assessment and Plan Problem List: (1) Vaginal bleeding Status: Acute (2) Oligohydramnios antepartum Status: Acute Assessment and Plan 25-year-old previous 1 now at 21 weeks with vaginal bleeding "gushing " abdominal cramping -Oligohydramnios Impression: US 05/27 with DVP 2.7 cm and small separation of amnion at lateral edge of placenta. Repeat US 05/30 with ERIC 2.5 (DVP) -Vaginal bleeding Impression: Suspect secondary to amniotic separation on 05/27 US. Persistent -Positive for cannabinoids -Tobacco abuse Plan: -MFM consultation pending (06/03/2016) -Cont to monitor vaginal bleeding -Cont intermittent FHTs and [place]. -Continue ABX (Ceftriaxone 1 g q 24 hr, first dose 05/31 at 1700). (Adilson Del Rio MD R2) Assessment and Plan 21 weeks early PPROM/chronic severe oligo No current evidence of infection Intermittent VB, stable Awaiting MFM consultation, repeat US (Darlin Hunter MD) Adilson Del Rio MD R2 Jun 02, 2016 10:43 Darlin Hunter MD Jun 05, 2016 04:26
[2016-06-02] MEDS: cefTRIAXone INJ 1,000 MG in SODIUM CHLORIDE 0.9% INJ 100 ML IV SCH (17:26)
[2016-06-03] VITALS (7 sets, daily range): BP systolic 117–140; BP diastolic 24–57; PULSE 78–89; RESP 16–18; TEMP 97.9–98.2
[2016-06-03] MEDS ORDERED: oxyCODONE/ACETAMINOPHEN 5 MG/325 MG TAB PO ONE
--- NOTE | 2016-06-03 00:12 | HHI.PR ---
GAME MASTER Note Note Patient at 21 weeks with known oligohydramnios since 18 weeks readmitted due to Premature rupture of membranes. Had experienced several episodes of vaginal bleeding, all minimal in nature. FHR 145 by doppler, patient is complaining of abdominal cramping. Sterile speculum performed with closed cervix, some blood noted in vault, no active bleeding. Will offer pain medication for the cramping. Patient is, of course, anxious about the course of this , and the possiblities of miscarriage. She is scheduled to see perinatology tomorrow for recommendations. Ava Naqvi MD Jun 03, 2016 00:12
--- NOTE | 2016-06-03 07:27 | PD.OB.ANTE ---
Subjective Diagnosis: (1) Vaginal bleeding Diagnosis: Principal (2) Oligohydramnios antepartum Diagnosis: Principal Interval History Ms. Epperson was afebrile with stable vital signs overnight; isolated SBP 140 but otherwise normotensive. Patient reports feeling uterine contractions last night; patient also reported increased and darker than usual vaginal bleeding. Per EMR, patient evaluated by Dr. Naqvi and speculum exam revealed closed cervix and minimal bleeding. Patient states that she no longer feels contractions this morning after having been given Percocet. Patient does not report other complaints at this time. Objective Vital Signs Vital Signs Date Time Temp Pulse Resp B/P Pulse Ox O2 Delivery O2 Flow Rate FiO2 06/03/16 04:04 78 140/57 06/03/16 04:04 98.0 18 06/03/16 01:00 98.2 06/03/16 00:15 98.2 18 06/03/16 00:14 80 131/45 06/03/16 00:12 86 122/47 06/03/16 00:10 89 117/24 06/02/16 18:50 86 18 06/02/16 18:45 87 06/02/16 18:40 92 06/02/16 18:35 93 06/02/16 18:30 94 06/02/16 18:29 96 158/58 06/02/16 17:31 18 06/02/16 17:30 84 138/55 06/02/16 17:00 18 06/02/16 13:00 98.3 06/02/16 13:00 18 06/02/16 12:33 92 146/56 Lab & Micro Results Test 06/02/16 08:19 Blood Type O POSITIVE Blood Bank Comment Physical Exam GENERAL: Well-nourished, well-developed patient. CARDIOVASCULAR: Regular rate and rhythm without murmurs; normal perfusion RESPIRATORY: CTAB, normal rate ABDOMEN/GI: Abdomen soft, non-tender. Gravid EXTREMITIES: No cyanosis or edema, non-tender, without signs of DVT. GENITOURINARY: (Last exam 06/02 midnight) External Genitalia: intact and normal in appearance Cervix: Dilatation: 0 Membranes: Intact Uterine Contractions: intermittent last night FHT's: (intermittent) Category: 1 Baseline: 145 Reactive: Y Assessment and Plan Problem List: (1) Vaginal bleeding Status: Acute (2) Oligohydramnios antepartum Status: Acute Assessment and Plan 25-year-old previous 1 now at 21 weeks with vaginal bleeding "gushing " abdominal cramping -Oligohydramnios Impression: US 05/27 with DVP 2.7 cm and small separation of amnion at lateral edge of placenta. Repeat US 05/30 with ERIC 2.5 (DVP) -Vaginal bleeding Impression: Suspect secondary to amniotic separation on 05/27 US. Persistent -Positive for cannabinoids -Tobacco abuse Plan: -MFM consultation pending (06/03/2016) -Cont to monitor vaginal bleeding -Cont intermittent FHTs and [place]. -Continue ABX (Ceftriaxone 1 g q 24 hr, first dose 05/31 at 1700). Adilson Del Rio MD R2 Jun 03, 2016 07:27
[2016-06-03] MEDS: DOCUSATE SODIUM 100 MG CAP PO SCH (09:17)
[2016-06-03] MEDS: SODIUM CHLORIDE 0.9% FLUSH 10 ML FLUSH IV FLUSH SCH ×2 (09:17→21:00)
[2016-06-03] MEDS: FERROUS SULFATE 325 MG (65 MG ELEMENTAL IRON) TAB PO SCH ×2 (09:17→22:01)
[2016-06-03] MEDS: MULTIVIT/MIN/PREN/FOL AC/IRON PRENATAL TAB PO SCH (09:17)
[2016-06-03] MEDS: cefTRIAXone INJ 1,000 MG in SODIUM CHLORIDE 0.9% INJ 100 ML IV SCH (17:15)
[2016-06-03] MEDS: SODIUM CHLORIDE 0.9% FLUSH 10 ML FLUSH IV FLUSH PRN (17:16)
[2016-06-03 19:45] LABS: AUTOMATED NEUTROPHIL # 9.4 TH/MM3 (1.8-7.7); BASOPHIL % 0.3 % (0.0-2.0); EOSINOPHIL # 0.4 TH/MM3 (0-0.4); HEMATOCRIT 35.2 % (35.0-46.0); HEMO FLAGS DIFF FINAL; LYMPH % 19.8 % (9.0-44.0); LYMPHOCYTE # 2.5 TH/MM3 (1.0-4.8); MEAN CELL VOLUME 82.5 FL (80.0-100.0); MEAN CORPUSCULAR HEMOGLOBIN 28.6 PG (27.0-34.0); MEAN CORPUSCULAR HGB CONC 34.7 % (32.0-36.0); MONO % 3.8 % (0.0-8.0); NEUT % 73.1 % (16.0-70.0); PLATELET COUNT 255 TH/MM3 (150-450); RED BLOOD COUNT 4.26 MIL/MM3 (4.00-5.30); RED CELL DISTRIBUTION WIDTH 13.3 % (11.6-17.2); WHITE BLOOD COUNT 12.8 TH/MM3 (4.0-11.0)
[2016-06-03] MEDS: ZOLPIDEM TARTRATE 5 MG TAB PO PRN (22:01)
[2016-06-04] VITALS (23 sets, daily range): BP systolic 109–137; BP diastolic 35–70; PULSE 82–97; RESP 16–18; TEMP 97.8–98.2
[2016-06-04] MEDS: DOCUSATE SODIUM 100 MG CAP PO SCH (08:21)
[2016-06-04] MEDS: FERROUS SULFATE 325 MG (65 MG ELEMENTAL IRON) TAB PO SCH (08:21)
[2016-06-04] MEDS: SODIUM CHLORIDE 0.9% FLUSH 10 ML FLUSH IV FLUSH SCH (08:21)
[2016-06-04] MEDS: MULTIVIT/MIN/PREN/FOL AC/IRON PRENATAL TAB PO SCH (08:21)
--- NOTE | 2016-06-04 08:46 | PD.OB.ANTE ---
Subjective Diagnosis: (1) Vaginal bleeding Diagnosis: Principal (2) Oligohydramnios antepartum Diagnosis: Principal Interval History Ms. Epperson was afebrile with stable vital signs overnight. Patient reports that she has had decreased vaginal bleeding but persistent cramping. Patient states that she is doing ok after talking with MFM yesterday regarding prognosis. No shortness of breath, fever/chills, dysuria, leg swelling, or other symptoms at this time. Objective Lab & Micro Results Test 06/03/16 06/03/16 18:15 19:26 Band and Hold White Blood Count 12.8 TH/MM3 Red Blood Count 4.26 MIL/MM3 Hemoglobin 12.2 GM/DL Hematocrit 35.2 % Mean Corpuscular Volume 82.5 FL Mean Corpuscular Hemoglobin 28.6 PG Mean Corpuscular Hemoglobin 34.7 % Concent Red Cell Distribution Width 13.3 % Platelet Count 255 TH/MM3 Mean Platelet Volume 7.9 FL Neutrophils (%) (Auto) 73.1 % Lymphocytes (%) (Auto) 19.8 % Monocytes (%) (Auto) 3.8 % Eosinophils (%) (Auto) 3.0 % Basophils (%) (Auto) 0.3 % Neutrophils # (Auto) 9.4 TH/MM3 Lymphocytes # (Auto) 2.5 TH/MM3 Monocytes # (Auto) 0.5 TH/MM3 Eosinophils # (Auto) 0.4 TH/MM3 Basophils # (Auto) 0.0 TH/MM3 CBC Comment DIFF FINAL Differential Comment Physical Exam GENERAL: Well-nourished, well-developed patient. CARDIOVASCULAR: Regular rate and rhythm without murmurs; normal perfusion RESPIRATORY: CTAB, normal rate ABDOMEN/GI: Abdomen soft, non-tender. Gravid EXTREMITIES: No cyanosis or edema, non-tender, without signs of DVT. GENITOURINARY: (Last exam 06/02 midnight) External Genitalia: intact and normal in appearance Cervix: Dilatation: 0 Membranes: Intact Uterine Contractions: intermittent last night FHT's: (intermittent) -FHR 152 06/03 Assessment and Plan Problem List: (1) Vaginal bleeding Status: Acute (2) Oligohydramnios antepartum Status: Acute Assessment and Plan 25-year-old previous 1 now at 21 weeks with vaginal bleeding "gushing " abdominal cramping -Oligohydramnios Impression: US 06/03 with anhydramnios; no measurable pocket (decreased from prior US 05/30 with ERIC 2.5 (DVP) and US 05/27 with DVP 2.7 cm and small separation of amnion at lateral edge of placenta) -Vaginal bleeding Impression: Suspect secondary to amniotic separation on 05/27 US. Persistent -Positive for cannabinoids -Tobacco abuse Plan: -MFM consulted; patient seen 06/03 -Cont to monitor vaginal bleeding -Cont intermittent FHTs and [place]. -Cont Fentanyl for pain control -Continue ABX Ceftriaxone 1 g q 24 hrs Adilson Del Rio MD R2 Jun 04, 2016 08:46
[2016-06-04] MEDS: cefTRIAXone INJ 1,000 MG in SODIUM CHLORIDE 0.9% INJ 100 ML IV SCH (16:38)
--- NOTE | 2016-06-04 18:39 | PD.OB.ANTE ---
Subjective Diagnosis: (1) Vaginal bleeding Diagnosis: Principal (2) Oligohydramnios antepartum Diagnosis: Principal Interval History Now c/o cramping. No vaginal pressure. No bleeding at this time. No F/C. Objective Vital Signs Vital Signs Date Time Temp Pulse Resp B/P Pulse Ox O2 Delivery O2 Flow Rate FiO2 06/04/16 17:00 98.2 18 06/04/16 16:44 82 136/55 Lab & Micro Results Test 06/03/16 19:26 White Blood Count 12.8 TH/MM3 Red Blood Count 4.26 MIL/MM3 Hemoglobin 12.2 GM/DL Hematocrit 35.2 % Mean Corpuscular Volume 82.5 FL Mean Corpuscular Hemoglobin 28.6 PG Mean Corpuscular Hemoglobin 34.7 % Concent Red Cell Distribution Width 13.3 % Platelet Count 255 TH/MM3 Mean Platelet Volume 7.9 FL Neutrophils (%) (Auto) 73.1 % Lymphocytes (%) (Auto) 19.8 % Monocytes (%) (Auto) 3.8 % Eosinophils (%) (Auto) 3.0 % Basophils (%) (Auto) 0.3 % Neutrophils # (Auto) 9.4 TH/MM3 Lymphocytes # (Auto) 2.5 TH/MM3 Monocytes # (Auto) 0.5 TH/MM3 Eosinophils # (Auto) 0.4 TH/MM3 Basophils # (Auto) 0.0 TH/MM3 CBC Comment DIFF FINAL Differential Comment Physical Exam GENERAL: Well-nourished, well-developed patient. CARDIOVASCULAR: VSS RESPIRATORY: No accessory muscle use. ABDOMEN/GI: Abdomen soft, tender on left lower uterus FHR+ TOCO: UC q 2-4 min Assessment and Plan Problem List: (1) Vaginal bleeding Status: Acute (2) Oligohydramnios antepartum Status: Acute Assessment and Plan 25-year-old @ 22w0d -Oligohydramnios Impression: US 06/03 with anhydramnios; no measurable pocket (decreased from prior US 05/30 with ERIC 2.5 (DVP) and US 05/27 with DVP 2.7 cm and small separation of amnion at lateral edge of placenta) Patient understand poor survivability with early PPROM. s/p MFM consultation. No evidence of infection, patient has been on Abx. -Vaginal bleeding Impression: Suspect secondary to amniotic separation on 05/27 US. Continues intermittent small amounts of bleeding/fluid. Patient continued observation and care secondary to bleeding -Prior Discussed pre-viable and poor prognosis. We will not monitor or perform a for distress -Substance abuse Positive for cannabinoids Tobacco abuse Patient now having regular UC. Discussed delivery, breech fetus. To labor room if dilating. epidural as desires. Darlin Hunter MD Jun 04, 2016 18:39
[2016-06-04] MEDS: ZOLPIDEM TARTRATE 5 MG TAB PO PRN (23:32)
[2016-06-05] VITALS (38 sets, daily range): BP systolic 92–153; BP diastolic 29–80; PULSE 81–108; RESP 16–22; TEMP 98.1–98.8; O2SAT 98–100
[2016-06-05] MEDS ORDERED: MORPHINE SULFATE 8 MG/ML INJ IV PUSH ONE (01:30)
[2016-06-05] MEDS ORDERED: MORPHINE SULFATE 8 MG/ML INJ IM ONE (01:30)
--- NOTE | 2016-06-05 01:42 | PD.OB.ANTE ---
Subjective Diagnosis: (1) Vaginal bleeding Diagnosis: Principal (2) Oligohydramnios antepartum Diagnosis: Principal Interval History Patient having increased pain with contractions. Scant bleeding, occasional LOF. Objective Vital Signs Vital Signs Date Time Temp Pulse Resp B/P Pulse Ox O2 Delivery O2 Flow Rate FiO2 06/05/16 01:20 96 139/71 06/05/16 01:19 22 06/04/16 23:31 98.0 Physical Exam GENERAL: Uncomfortable with UC CARDIOVASCULAR: Regular rate VSS RESPIRATORY: No accessory muscle use. ABDOMEN/GI: Abdomen soft, mild discomfort with deep palpation Unable to palpate UC UC q 5 min per patient. GENITOURINARY: External Genitalia: SVE: FT/50%/-3 mild effacement, vtx presenting part palpated FHT's: 152 Assessment and Plan Problem List: (1) Vaginal bleeding Status: Acute (2) Oligohydramnios antepartum Status: Acute Assessment and Plan 25-year-old @ 22w1d Chronic oligohydramnios with PPROM. Laboring now with UC q 5min. minimal cervical change with some mild effacement. Discussed non-viability and poor prognosis with no fluid since before 20 weeks. Will not monitor in labor and no for indications. MELVIN. Will give IV medications for pain When dilating discussed epidural for pain. Darlin Hunter MD Jun 05, 2016 01:42
--- NOTE | 2016-06-05 06:35 | PD.LABORPN ---
Subjective Subjective Patient got some reset after morphine this AM. Now feeling increased pressure and UC. Vaginal bleeding still very light/scant. Objective Vital Signs Vital Signs Date Time Temp Pulse Resp B/P Pulse Ox O2 Delivery O2 Flow Rate FiO2 06/05/16 03:34 82 18 142/52 06/05/16 02:21 18 06/05/16 01:20 96 139/71 06/05/16 01:19 22 06/04/16 23:32 85 137/44 06/04/16 23:31 98.0 16 Objective Pelvic Exam: 5cm/100/-2 Assessment/Plan Problem List: (1) Vaginal bleeding (2) Oligohydramnios antepartum Assessment and Plan 22w1d early PPROM with severe oligohydramnios Now in labor, will Epidural for anesthesia expectant management Non-viable fetus. Darlin Hunter MD Jun 05, 2016 06:35
[2016-06-05] MEDS ORDERED: fentaNYL 2MCG-BUPIV 0.125% INJ 100 ML ONE (06:45)
[2016-06-05] MEDS ORDERED: OXYTOCIN 30 UNITS-500ML PREMIX 500 ML ONE (07:11)
[2016-06-05] MEDS ORDERED: MISOPROSTOL 200 MCG TAB ONE (07:12)
[2016-06-05] MEDS ORDERED: DO NOT ADMINISTER ANTICOAGULANTS PRN (07:30)
[2016-06-05] MEDS ORDERED: fentaNYL 2MCG-BUPIV 0.125% 100 ML EPIDURAL SCH (07:30)
[2016-06-05] MEDS ORDERED: NO SYSTEM NARCOTICS PRN (07:30)
[2016-06-05] MEDS ORDERED: ePHEDrine/NS 25 MG/5 ML SYR IV PRN (07:30)
[2016-06-05 13:18] LABS: BATH SALTS (MDPV) UR NEG (NEG); ECSTASY (MDMA) UR NEG (NEG); GABAPENTIN UR NEG (NEG); HEROIN (6-ACETYLMORPHINE) UR NEG (NEG); K2 SPICE UR NEG (NEG); OBMETHADONE UR NEG (NEG); OXYCODONE (PERCODAN) NEG (NEG); PHENCYCLIDINE URINE NEG (NEG)
[2016-06-05 13:19] LABS: HYDROMORPHONE U NEG (NEG)
--- NOTE | 2016-06-05 13:20 | PD.OB.DELI ---
Delivery Date: Jun 05, 2016 Anesthesia: Epidural Episiotomy: None Vaginal Delivery: Normal Presentation: Occiput anterior Nuchal Cord: None Delayed cord clamping (45 sec): No : Female One Minute : 1 Five Minute : 1 Weight: 435 g that equals 15 ounces Placenta: Spontaneous delivery Additional Information This 25-year-old 2 para 1 presently at 22 weeks previous 1 admitted with premature rupture of membranes delivered spontaneously over an intact perineum placenta spontaneous and intact There were no lacerations Estimated blood loss approximately 300 cc Uterus firm Pitocin infusing at 1 25 cc an hour No Apgars assigned to this fetus Mother and dad holding baby Radha Mcelroy MD Jun 05, 2016 13:20
[2016-06-05] MEDS ORDERED: IBUPROFEN 600 MG TAB PO PRN (14:00)
[2016-06-05] MEDS ORDERED: WITCH HAZEL 50%/GLYCERIN 12.5% 40 PAD JAR TOPICAL PRN (14:00)
[2016-06-05] MEDS ORDERED: BENZOCAINE 20% TOPICAL SPRAY 60 ML CAN TOPICAL PRN (14:00)
[2016-06-05] MEDS ORDERED: DIPHTH/TETANUS/ACEL PERTUSSIS (BOOSTER) 0.5 ML VIAL/PFS IM ONE (16:00)
[2016-06-05] MEDS ORDERED: MEASLES, MUMPS, RUBELLA VACCINE 0.5 ML VIAL SQ ONE (16:00)
[2016-06-05] MEDS: ceFAZolin 2 GM PREMIX 50 ML IV SCH (20:17)
[2016-06-06 02:06] VITALS: RESP 16
[2016-06-06 02:08] VITALS: BP 135/57; PULSE 69
[2016-06-06 04:41] VITALS: TEMP 98.2
[2016-06-06 04:44] VITALS: BP 128/60; PULSE 71
[2016-06-06 04:45] VITALS: RESP 16
[2016-06-06] MEDS: ceFAZolin 2 GM PREMIX 50 ML IV SCH (07:55)
--- NOTE | 2016-06-06 10:08 | HHI.DCPOC ---
Discharge Care Plan Diagnosis: (1) delivery, delivered Report Symptoms to Your Doctor -Temperate above 100.5 degrees -Redness, of incision or excessive or foul smelling drainage -Unusual pain or calf pain -Increased vaginal bleeding -Painful or difficulty urinating -Feelings of extreme sadness or anxiety after 2 weeks Goals to Promote Your Health * To prevent worsening of your condition and complications * To maintain your health at the optimal level Directions to Meet Your Goals Take your medications as prescribed Follow your dietary instruction Follow activity as directed Ensure plenty of rest for recovery Drink fluids for hydration Keep your appointments as scheduled Take your immunizations and boosters as scheduled If your symptoms worsen call your PCP, if no PCP go to Urgent Care Center or Emergency Room Smoking is Dangerous to Your Health. Avoid second hand smoke Call the 24-hour crisis hotline for domestic abuse at Adilson Del Rio MD R2 Jun 06, 2016 10:08
[2016-06-06] MEDS ORDERED: IBUP-232 PO (10:11)
--- NOTE | 2016-06-06 10:13 | HHI.OB ---
Objective Vitals/I&O Vital Signs Date Time Temp Pulse Resp B/P Pulse Ox O2 Delivery O2 Flow Rate FiO2 06/06/16 04:45 16 06/06/16 04:44 71 128/60 06/06/16 04:41 98.2 06/06/16 02:08 69 135/57 06/06/16 02:06 16 06/05/16 22:31 98.1 81 16 06/05/16 22:31 118/39 06/05/16 19:30 90 142/56 06/05/16 19:29 98.3 18 06/05/16 15:31 87 129/60 06/05/16 15:18 98.8 20 06/05/16 15:17 91 147/72 06/05/16 13:31 98 92/42 06/05/16 13:00 105 146/63 06/05/16 12:31 86 127/53 06/05/16 12:00 91 135/59 06/05/16 11:30 89 139/58 06/05/16 11:00 88 136/62 06/05/16 10:30 81 130/63 Objective Remarks GENERAL: Well-nourished, well-developed patient. CARDIOVASCULAR: Regular rate and rhythm without murmurs, gallops, or rubs. RESPIRATORY: Breath sounds equal bilaterally. No accessory muscle use. ABDOMEN/GI: Abdomen soft, non-tender. Fundus: Firm, non-tender at umbilicus. GENITOURINARY: Light to moderate bleeding. EXTREMITIES: No cyanosis or edema, non-tender, without signs of DVT. Medications and IVs Current Medications Medications (Trade) Dose Ordered Sig/Leia Route Start Time Stop Time Status Last Admin (Tylenol) 650 mg Q4H PRN PO 05/31/16 16:15 (Stuartnatal Plus 3 ) 1 tab DAILY PO 06/01/16 09:00 06/04/16 08:21 (Colace) 100 mg DAILY PO 06/01/16 09:00 06/04/16 08:21 (Mag-Al Plus Susp Liq) 30 ml QID PRN PO 05/31/16 16:15 (NS Flush) 2 ml BID IV FLUSH 05/31/16 21:00 06/04/16 08:21 (NS Flush) 2 ml UNSCH PRN IV FLUSH 05/31/16 16:15 06/03/16 17:16 (Ambien) 5 mg HS PRN PO 05/31/16 16:15 06/04/16 23:32 (Zofran Odt) 4 mg Q6H PRN PO 05/31/16 16:15 (Zofran Inj) 4 mg Q6H PRN IV 05/31/16 16:15 06/05/16 01:44 Ferrous Sulfate 325 mg 325 mg BID PO 05/31/16 21:00 06/04/16 08:21 (Rocephin Inj/NS Inj) 100 ml @ 200 mls/hr Q24H IV 05/31/16 17:00 06/04/16 16:38 Fentanyl Citrate 50 mcg 50 mcg Q3H PRN IV PUSH 05/31/16 20:15 06/05/16 05:13 (fentaNYL 2MCG-BUPIV 0.125% INJ) 100 ml @ 0 mls/hr TITRATE EPIDURAL 06/05/16 07:30 (Motrin) 600 mg Q6H PRN PO 06/05/16 14:00 (Americaine 20% Top Spr) 1 spray Q4H PRN TOPICAL 06/05/16 14:00 Witch Tracy/ Glycerin 1 applic 1 applic QID PRN TOPICAL 06/05/16 14:00 (Ancef 2 Gm Premix) 50 ml @ 100 mls/hr Q12H IV 06/05/16 20:00 06/06/16 07:55 Assessment/Plan Problem List: (1) Vaginal bleeding (2) Oligohydramnios antepartum Assessment and Plan 21 weeks early PPROM/chronic severe oligo No current evidence of infection Intermittent VB, stable Awaiting MFM consultation, repeat US Adilson Del Rio MD R2 Jun 06, 2016 10:13
--- NOTE | 2016-06-06 11:32 | HHI.OB ---
Subjective Post Day: 1 Remarks Ms. Epperson is PPD1 from delivery of 22 week gestation. Afebrile with stable vital signs overnight. Patient and her were visited while holding infant; crying but consolable. Ms. Epperson did not have any new complaints at this time. No significant bleeding or abdominal pain. Ambulating and urinating well. No shortness of breath. Objective Vitals/I&O Vital Signs Date Time Temp Pulse Resp B/P Pulse Ox O2 Delivery O2 Flow Rate FiO2 06/06/16 04:45 16 06/06/16 04:44 71 128/60 06/06/16 04:41 98.2 06/06/16 02:08 69 135/57 06/06/16 02:06 16 06/05/16 22:31 98.1 81 16 06/05/16 22:31 118/39 06/05/16 19:30 90 142/56 06/05/16 19:29 98.3 18 06/05/16 15:31 87 129/60 06/05/16 15:18 98.8 20 06/05/16 15:17 91 147/72 06/05/16 13:31 98 92/42 06/05/16 13:00 105 146/63 06/05/16 12:31 86 127/53 06/05/16 12:00 91 135/59 06/05/16 11:30 89 139/58 Objective Remarks GENERAL: Well-nourished, well-developed patient. CARDIOVASCULAR: Normal perfusion grossly RESPIRATORY: Normal rate; no distress ABDOMEN/GI: Abdomen soft, non-tender. GENITOURINARY: Light bleeding. EXTREMITIES: No edema; without signs of DVT. Assessment/Plan Problem List: (1) Vaginal bleeding (2) Oligohydramnios antepartum Assessment and Plan 25-year-old who is PPD1 from delivery at 22 weeks (PPROM-> labor; Oligohydramnios persistent on US) -Patient had received pre and post delivery Cefazolin to prophylax against infection risks following PPROM -No significant bleeding or pain -VS stable -1 week follow-up recommended Adilson Del Rio MD R2 Jun 06, 2016 11:32
[2016-06-11] MEDS ORDERED: CITA20TA4 PO (15:07)
== END 2016-06-06 10:24 | disposition home or self-care (01) ==
LOC: HOBED 14:53 → H2EA 16:07
PROVIDERS: ADMIT Obstetrics & Gynecology Maternal & Fetal Medicine; ATTEND Obstetrics & Gynecology Maternal & Fetal Medicine
DX: O60.12X1 Preterm labor second trimester with preterm delivery second trimester, fetus 1 (principal); O42.912 Preterm premature rupture of membranes, unspecified as to length of time between rupture and onset of labor, second trimester; O46.92 Antepartum hemorrhage, unspecified, second trimester; O41.02X0 Oligohydramnios, second trimester, not applicable or unspecified; O34.219 Maternal care for unspecified type scar from previous cesarean delivery; O99.332 Smoking (tobacco) complicating pregnancy, second trimester; F17.210 Nicotine dependence, cigarettes, uncomplicated; Z3A.22 22 weeks gestation of pregnancy; Z37.0 Single live birth
CPT/HCPCS: 01960; 59612; 76815; 80053; 80307; 81001; 85025; 86900; 86901; 99284; G0378; G0481; J0690; J0696; J2270; J2405; J2590; J3010; 80348; G0480

== ENCOUNTER 2017-07-11 14:06 | Emergency (ER) | payer MEDICAID ==
[~2017-07-11] VITALS: Ht 170.2 cm; Wt 150.0 kg
[~2017-07-11 14:06] MED LIST changes: -CALNTAB; +CITA20TA4 PO
[2017-07-11 14:15] VITALS: BP 145/72; PULSE 104; RESP 16; TEMP 98.4; O2SAT 98
--- NOTE | 2017-07-11 15:09 | PD ---
HPI . Fluid per vagina Chief Complaint: Related Problem Time Seen by Provider: 14:30 Travel History International Travel<30 days: No Contact w/Intl Traveler<30days: No Traveled to known affect area: No History of Present Illness HPI This patient is 11 weeks . She had a previous loss of because of inadequate amniotic fluid. She states that she had a gush of fluid at about 11 weeks with that . She subsequently lost the baby a couple of months later. She states that she was at work today and felt a gush of fluid. She is very concerned and presented to the emergency department for further evaluation. She does not have any pain. Onset: Just prior to presentation Severity: 4 per the patient Context: Previous loss of amniotic fluid with a prior Modifying factors: None known PFSH Past Medical History Asthma: Yes ("CHILDHOOD") Autoimmune Disease: No Blood Disorders: No Cardiovascular Problems: No Diminished Hearing: No Musculoskeletal: No Neurologic: No Respiratory: No Immunizations Current: Yes Tetanus Vaccination: > 5 Years ?: LMP: 04/24/17 : 3 Para: 1 Miscarriage: 1 Social History Alcohol Use: No Tobacco Use: Yes Substance Use: No Allergies-Medications (Allergen,Severity, Reaction): Coded Allergies: No Known Allergies (Verified , 06/11/16) Reported Meds & Prescriptions Reported Meds & Active Scripts Active Citalopram (Citalopram Hydrobromide) 20 Mg Tab 20 Mg PO DAILY Review of Systems Except as stated in HPI: all other systems reviewed are Neg Physical Exam Narrative GENERAL: Awake and alert. Appropriately concerned. SKIN: warm/dry. Normal color and turgor. HEAD: Normocephalic. Atraumatic. EYES: Pupils equal and round. No scleral icterus. No injection or drainage. ENT: No nasal bleeding or discharge. Mucous membranes pink and moist. NECK: Trachea midline. Full range of motion without pain.. CARDIOVASCULAR: Regular rate and rhythm. RESPIRATORY: No accessory muscle use. GASTROINTESTINAL: Obese. Soft and nontender. : No obvious fluid noted in the vaginal vault. MUSCULOSKELETAL: No obvious deformities. NEUROLOGICAL: Awake and alert. No obvious cranial nerve deficits. Motor grossly within normal limits. Normal speech. PSYCHIATRIC: Appropriate mood and affect; insight and judgment normal. Data Data Last Documented VS Vital Signs Date Time Temp Pulse Resp B/P (MAP) Pulse Ox O2 Delivery O2 Flow Rate FiO2 6/2/18 14:15 98.4 104 16 145/72 (96) 98 Orders Orders Ed Poc Ultrasound (07/11/17 14:31) MDM Medical Decision Making Medical Screen Exam Complete: Yes Emergency Medical Condition: Yes Differential Diagnosis My differential diagnosis includes but is not limited to normal vaginal discharge, urinary incontinence, amniotic fluid leakage Narrative Course This patient presents concerned that she is leaking amniotic fluid. She lost her amniotic fluid with a previous and that resulted in loss of fetus. She is 11 weeks . She was at work and felt a gush of fluid between her legs. We did an amniotic fluid analysis. We obtained the kit from the OB ED. Urinalysis is negative for amniotic fluid. She will be discharged home with reassurance that everything looks okay at this point. Procedures Procedure Narrative Emergency Department Pelvic ultrasound was performed with patient consent. The curvilinear probe was used in the transverse and sagittal views within the suprapubic region revealing + intrauterine . heart rate was 188. + movement. Diagnosis Primary Impression: Vaginal discharge Disposition: DISCHARGE HOME Condition: Stable Mecca Gonzalez MD Jul 11, 2017 15:09
== END 2017-07-11 15:31 | disposition home or self-care (01) ==
LOC: NEPD 14:06
DX: O99.89 Other specified diseases and conditions complicating pregnancy, childbirth and the puerperium (principal); N89.8 Other specified noninflammatory disorders of vagina; Z3A.11 11 weeks gestation of pregnancy
CPT/HCPCS: 99282

== ENCOUNTER 2018-01-10 07:56 | Inpatient (IN) ==
--- NOTE | 2018-01-10 09:04 | ED ---
History of Present Illness Primary Care Physician: No Primary Care Physician Chief Complaint: SROM History of Present Illness: 27 y/o at 37/2 weeks gestation with history of demise following labor with vaginal delivery at 22 weeks gestation presents to the OB ED for gush of fluid that occurred at 7AM this morning. Patient notes passing large amount of clear to pink fluid. No contractions, vaginal bleeding , decreased movement. She denies any nausea, vomiting, chest pain, headache, blurred vision, shortness of breath, leg swelling, or leg pain. She states that this has been uneventful thus far. labs were negative per patient. 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 Second labor occurring at 22 weeks resulted in vaginal delivery with demise. Past medical history: None Medications: vitamin, progesterone shot as preventative measure for labor in this Allergies: None Surgical history: x1 Prior hospitalizations: None Social history: Smokes about half a pack a day. Admits to marijuana use less than once a month during this . Denies EtOH use during this . PCP: [facility] We[facility] Gestation:: 37 Para: 1 : 3 - Inpatient Certification I certify that the inpatient services were ordered in accordance with Medicare regulations governing the order. This includes certification that hospital inpatient services are reasonable and necessary and in the case of services not specified as inpatient-only under 42 CFR 419.22(n), that they are appropriately provided as inpatient services in accordance to with the 2-midnight benchmark under 43 CFR 412.3(e) Review of Systems All other systems reviewed negative except as stated in HPI PMFSH - History History Provided By: Patient - Medical / Surgical Hx Neg / Unobtainable Medical Problems Denied: Yes - Surgical History Surgical History: Surgical History (Last Reviewed 01/10/18 @ 10:08 by Mamta Ordaz DO, R1) Previous section - Family History Family History: Family History (Last Updated 01/10/18 @ 10:08 by Mamta Ordaz DO, R1) Other Family history non-contributory - Social History I have reviewed the patient's Social History: Yes - Tobacco History Tobacco Use In Past 30 Days: Yes Smoking Status: Current every day smoker (0.5 PPD) Tobacco Type: Cigarettes - Alcohol History How Often Do You Have a Drink Containing Alcohol: Never - Substance Use History Substance History: Active Abuse (smokes marijuana less than one time a month) - Travel History Recent Travel in the [place] Within the Last 8 Weeks: No Recent Travel Out of the Country Within the Last 8 Weeks: No Medications and Allergies Allergies Allergy/AdvReac Type Severity Reaction Status Date / Time No Known Allergies Allergy Verified 01/10/18 08:40 Home Medications Medication Instructions Recorded Confirmed Type vit,[id number] 1 tab PO DAILY 01/10/18 01/10/18 History [PNV 29-1] Exam Vital signs: Vital Signs 01/10/18 08:28 01/10/18 08:31 Temperature 97.9 F Pulse Rate 96 H Respiratory Rate 18 Blood Pressure 111/52 L Intake & Output 01/09/18 01/10/18 01/10/18 18:59 06:59 18:59 Weight 136.078 kg Narrative: GENERAL: Well-nourished, well-developed patient. SKIN: Warm and dry. HEAD: Normocephalic and atraumatic. ENT: No nasal drainage noted. Airway patent. NECK: Supple, trachea midline. No JVD. CARDIOVASCULAR: Regular rate and rhythm without murmurs, gallops, or rubs. RESPIRATORY: Breath sounds equal bilaterally. No accessory muscle use. ABDOMEN/GI: Abdomen soft, non-tender, bowel sounds present, no rebound, no guarding Gravid to 37 weeks size FHT's: Category: 1 Baseline: 150s Reactive: N Variability: moderate Decels: none, no accelerations Uterine contractions: none EXTREMITIES: No cyanosis or edema. NEUROLOGICAL: Awake and alert. Motor and sensory grossly within normal limits. Five out of 5 muscle strength in all muscle groups. Normal speech. Results - Labs CBC & Chem 7: 01/10/18 09:30 Assessment and Plan - Diagnosis (1) 37 weeks gestation of Code(s): Z3A.37 - 37 weeks gestation of Status: Acute (2) SROM (spontaneous rupture of membranes) Code(s): O82 - Encounter for delivery without indication Status: Acute - Plan 27 y/o F presents to the ED for fluid loss. -Continuous FHT showed Category 1 tracing, reassuring -Bedside US showed complete breech -Admit to L&D for expectant management and coordination of C/S today Discharge Plan - Physicians Team Primary Care Provider: Primary Care Thao Murray Attending Provider: Eulogio Sherman - Rxs /Orders / Referrals /Forms Prescriptions: No Action vit,[id number] [PNV 29-1] 29 mg iron- 1 mg Tablet 1 tab PO DAILY
--- NOTE | 2018-01-10 09:24 | P.HPOB ---
History of Present Illness Primary Care Physician: No Primary Care Physician Chief Complaint: SROM History of Present Illness: 27 y/o at 37/2 weeks gestation with history of demise following labor with vaginal delivery at 22 weeks gestation presents to the OB ED for gush of fluid that occurred at 7AM this morning. Patient notes passing large amount of clear to pink fluid. No contractions, vaginal bleeding , decreased movement. She denies any nausea, vomiting, chest pain, headache, blurred vision, shortness of breath, leg swelling, or leg pain. She states that this has been uneventful thus far. labs were negative per patient. 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 Past medical history: None Medications: vitamin, progesterone shot as preventative measure for labor in this Allergies: None Surgical history: x1 Prior hospitalizations: None Social history: Smokes about half a pack a day. Admits to marijuana use less than once a month during this . Denies EtOH use during this . PCP: [facility] We[facility] Gestation:: 37 Para: 1 : 3 - Inpatient Certification I certify that the inpatient services were ordered in accordance with Medicare regulations governing the order. This includes certification that hospital inpatient services are reasonable and necessary and in the case of services not specified as inpatient-only under 42 CFR 419.22(n), that they are appropriately provided as inpatient services in accordance to with the 2-midnight benchmark under 43 CFR 412.3(e) Review of Systems All other systems reviewed negative except as stated in HPI PMFSH - History History Provided By: Patient - Medical / Surgical Hx Neg / Unobtainable Medical Problems Denied: Yes - Surgical History Surgical History: Surgical History (Last Reviewed 01/10/18 @ 10:08 by Mamta Ordaz DO, R1) Previous section - Family History Family History: Family History (Last Updated 01/10/18 @ 10:08 by Mamta Ordaz DO, R1) Other Family history non-contributory - Social History I have reviewed the patient's Social History: Yes - Tobacco History Tobacco Use In Past 30 Days: Yes Smoking Status: Current every day smoker (0.5 PPD) Tobacco Type: Cigarettes - Alcohol History How Often Do You Have a Drink Containing Alcohol: Never - Substance Use History Substance History: Active Abuse (smokes marijuana less than one time a month) - Travel History Recent Travel in the [place] Within the Last 8 Weeks: No Recent Travel Out of the Country Within the Last 8 Weeks: No Medications and Allergies Allergies Allergy/AdvReac Type Severity Reaction Status Date / Time No Known Allergies Allergy Verified 01/10/18 08:40 Home Medications Medication Instructions Recorded Confirmed Type vit,[id number] 1 tab PO DAILY 01/10/18 01/10/18 History [PNV 29-1] Exam Vital signs: Vital Signs 01/10/18 08:28 01/10/18 08:31 Temperature 97.9 F Pulse Rate 96 H Respiratory Rate 18 Blood Pressure 111/52 L Intake & Output 01/09/18 01/10/18 01/10/18 18:59 06:59 18:59 Weight 136.078 kg Narrative: GENERAL: Well-nourished, well-developed patient. SKIN: Warm and dry. HEAD: Normocephalic and atraumatic. ENT: No nasal drainage noted. Airway patent. NECK: Supple, trachea midline. No JVD. CARDIOVASCULAR: Regular rate and rhythm without murmurs, gallops, or rubs. RESPIRATORY: Breath sounds equal bilaterally. No accessory muscle use. ABDOMEN/GI: Abdomen soft, non-tender, bowel sounds present, no rebound, no guarding Gravid to 37 weeks size FHT's: Category: 1 Baseline: 150s Reactive: N Variability: moderate Decels: none, no accelerations Uterine contractions: none EXTREMITIES: No cyanosis or edema. NEUROLOGICAL: Awake and alert. Motor and sensory grossly within normal limits. Five out of 5 muscle strength in all muscle groups. Normal speech. Results - Labs CBC & Chem 7: 01/10/18 09:30 Assessment and Plan - Diagnosis (1) 37 weeks gestation of Code(s): Z3A.37 - 37 weeks gestation of Status: Acute (2) SROM (spontaneous rupture of membranes) Code(s): O82 - Encounter for delivery without indication Status: Acute - Plan 27 y/o F presents to the ED for fluid loss. -Continuous FHT showed Category 1 tracing, reassuring -Bedside US showed complete breech -Continue routine antepartum care -Awaiting coordination of C/S today -Ordered Ancef 2g IV and Azithromycin 500mg IV to be given prior to C/S sdw Dr. Borrego and Dr. Sherman
[2018-01-10] MEDS ORDERED: Citric Acid/Sodium Citrate Liq 30 ML UDC PO SCH (09:30)
[2018-01-10] MEDS ORDERED: ceFAZolin 2 GM Premix Inj 2 GM/50 ML PIGGYBACK IV.SIG ONE (09:31)
[2018-01-10 09:55] LABS: Baso % (Auto) 0.2 % (0.0-2.0); Eos # (Auto) 0.7 th/mm3 (0.0-0.4); Eos % (Auto) 5.5 % (0.0-4.0); Hematocrit 37.8 % (35.0-46.0); Hemoglobin 12.6 gm/dL (11.6-15.3); Lymph # (Auto) 2.4 th/mm3 (1.0-4.8); Lymph % (Auto) 19.3 % (9.0-44.0); Mean Corpuscular HGB Conc 33.4 % (32.0-36.0); Mean Corpuscular Hemoglobin 28.6 pg (27.0-34.0); Mean Corpuscular Volume 85.6 fL (80.0-100.0); Mean Platelet Volume 7.6 fL (7.0-11.0); Mono # (Auto) 0.8 th/mm3 (0.0-0.9); Mono % (Auto) 6.3 % (0.0-8.0); Neut # (Auto) 8.4 th/mm3 (1.8-7.7); Neut % (Auto) 68.7 % (16.0-70.0); Platelet Count 222 th/mm3 (150-450); Red Blood Count 4.41 mil/mm3 (4.00-5.30); Red Cell Distribution Width 14.4 % (11.6-17.2); White Blood Count 12.2 th/mm3 (4.0-11.0)
[2018-01-10] MEDS ORDERED: Morphine Sulfate PF Inj 5 MG/10 ML Ampul ONE (10:17)
[2018-01-10] MEDS ORDERED: Naloxone Inj 0.4 MG/ML Vial IV.PUSH PRN (10:46)
[2018-01-10 10:51] LABS: Bilirubin,Urine Negative (Negative); Clarity,Urine Clear (Clear); Color,Urine Yellow (Yellw/Straw); Glucose,Urine (UA) Negative (Negative); Leukocyte Esterase,Urine Negative (Negative); Mucus,Urine Few /lpf (Occasional); Nitrite,Urine Negative (Negative); Specific Gravity,Urine 1.014 (1.002-1.035); Squamous Epithelial Cell,Urine 1 /hpf (0-5)
[2018-01-10 10:53] LABS: Amphetamine Screen,Urine Neg (Neg); Barbiturate Screen,Urine Neg (Neg); Cannabinoid Screen,Urine Pos (Neg); Cocaine Screen,Urine Neg (Neg)
[2018-01-10 10:59] LABS: Opiate Screen,Urine Neg (Neg)
[2018-01-10] MEDS ORDERED: Azithromycin Inj 500 MG in Sodium Chlor 0.9% Inj 250 ML IV.SIG ONE (11:00)
[2018-01-10] MEDS ORDERED: Oxytocin 30 Units/500ml Premix 30 UNITS/500 ML BAG IV.SIG ONE (11:47)
--- NOTE | 2018-01-10 12:02 | P.OP ---
- Preoperative Diagnosis (1) Previous section complicating , antepartum condition or complication (2) Breech presentation (3) 37 weeks gestation of (4) SROM (spontaneous rupture of membranes) (5) Morbid (severe) obesity due to excess calories - Postoperative Diagnosis (1) Transverse or oblique presentation of fetus, delivered Date of procedure: 01/10/18 Procedure: Repeat and bilateral tubal ligation Anesthesia: spinal Surgeon: Cathie Bryant MD Estimated blood loss (mL): 500 Pathology: none sent Operation and Findings: Patient had desired but presents with ruptured membranes and noted to be a breech presentation received sign off from previous hospitalist I introduced myself to the patient we discussed alternatives benefits complications complications of surgery including but not limited to risk of permanent injury to the bowel bladder nerves blood vessels ureters any structures in abdomen or pelvis infection hemorrhage morbidity mortality with surgery and/or anesthesia related procedures even remote possibility of infection hemorrhage risk of maternal injury injury reoperation risk. Patient also desired bilateral tubal sterilization made aware 1-2 per thousand regards of the method used tubes may reanastomose resulting in most likely ectopic the permanency of the procedure as well. Patient expressed verbal understanding. We also discussed she has consume cigarettes today with Valsalva or frequent coughing may wind up in a wound dehiscence and how to manage preferably discontinue tobacco consumption. Patient expressed verbal understanding of all stated above. Note received IV antibiotics azithromycin as well as Ancef 3 g based on body habitus. She was subsequently taken to the OR where she was placed under spinal analgesia without incident prepped and draped in normal sterile fashion pannus retractor was subsequently used. Timeout was performed. Anesthesia noted to be adequate of panel seen incision was made through the previous incision carried down to the underlying layer of fascia which was nicked in the midline and dissected laterally digitally superior aspect of the fascia was grasped to [place] clamps x2 dissected off from the underlying rectus muscle bluntly the inferior aspect of the fascia was grasped to [place] clamps x2 dissected off from underlying rectus muscle sharply the rectus muscle was blunt entrance into the peritoneum with care to avoid the bladder the vesicouterine peritoneum was identified a incision was made in a transverse fashion to affect the bladder flap followed by bladder blade transverse incision on the uterus extended laterally digitally upon opening the uterus note that the right hand left foot umbilical cord and testicles presenting. At this time the fetus was subsequently rotated this is consistent with a transverse presentation back up was rotated to a footling breech presentation and subsequently grasped both feet delivered to the level of the sacrum loosen the cord delivered to the level of the shoulders rotating each shoulder until the neck was seen in the knee and subsequently pressure on the mandible keeping the head in a flexed position and delivered without incident nares and mouth were bulb suctioned 45-second delayed cord clamping performed. Infant was handed to awaiting liquor runner. Cord blood was collected the placenta was manually removed the uterus was externalized cleared of all clot and debris. Uterine incision was closed with 1 chromic in a running locked fashion. Followed by second imbricating Lembert suture. Until hemostasis was achieved. Attention was then paid to the patient's right tube which was grasped with a Bally clamp note that the tube was followed out to the fimbriated end ligated with plain gut x2 good knuckling good blanching of the tube noted and subsequently excised superior to the not the same identical procedure was performed to the contralateral tube. Affecting bilateral tubal sterilization. On note subsequently the posterior aspect of the uterus was evaluated no adhesions no scar tissue good hemostasis the paracolic gutters were cleared of all clot and debris. The uterus was repositioned in the pelvic abdominal cavity. All surgical sites were evaluated noted to have good hemostasis. The fascia was closed with 1 Maxon in its entirety with a running fashion. Campers fascia was reapproximated with 1 chromic interrupted figure of eights. Copious irrigation and then subsequent the skin was closed with Monocryl on a Chang needle in its entirety. Patient tolerated procedure well sponge lap needle counts were noted to be correct x2 patient taken to recovery room in stable condition. Note I was made aware that the the left hand there was a laceration in the crease or fold I subsequently went to evaluate I have informed the parents of the incident (and apologized for the incident ) and dad was actually present. Neonatology has been asked to call surgeon to evaluate the hand if it requires any further intervention.
[2018-01-10] MEDS ORDERED: Oxytocin 30 Units/500ml Premix 30 UNITS/500 ML BAG ONE (13:01)
[2018-01-10] MEDS ORDERED: Oxytocin 30 Units/500ml Premix 30 UNITS/500 ML BAG IV.SIG PRN (16:48)
[2018-01-11] MEDS ORDERED: Witch Hazel 50%/Glyderin 12.5% 40 Pad Jar RECTAL PRN (00:34)
[2018-01-11] MEDS ORDERED: Acetaminophen 325 MG Tablet PO PRN (00:34)
[2018-01-11] MEDS ORDERED: Zolpidem Tartrate 5 MG Tablet PO PRN (00:34)
[2018-01-11] MEDS ORDERED: Benzocaine 20% Top Spray 60 ML Can TOPICAL PRN (00:34)
[2018-01-11 05:46] LABS: Hematocrit 35.3 % (35.0-46.0); Hemoglobin 12.1 gm/dL (11.6-15.3); Mean Corpuscular HGB Conc 34.2 % (32.0-36.0); Mean Corpuscular Hemoglobin 28.8 pg (27.0-34.0); Mean Corpuscular Volume 84.1 fL (80.0-100.0); Mean Platelet Volume 7.6 fL (7.0-11.0); Platelet Count 223 th/mm3 (150-450); Red Cell Distribution Width 14.2 % (11.6-17.2); White Blood Count 12.9 th/mm3 (4.0-11.0)
--- NOTE | 2018-01-11 08:31 | P.PNOB ---
Subjective Interval history: 27 year old female s/p C/S at 37 wks gestation, POD1. AFVSS. Patient reports she is feeling well. Bleeding is decreasing and pain is well- controlled. She is breast feeding and bonding well with baby. Ambulating without difficulties. She is tolerating a diet without nausea or vomiting. She has not had a bowel movement. She has passed gas. Denies chest pain, dysuria, shortness of breath, or calf pain. Objective Vital Signs/I&O: Vital Signs 01/10/18 08:31 01/10/18 08:55 01/10/18 09:55 Temperature Pulse Rate 96 H 94 H 90 Respiratory Rate 18 Blood Pressure 111/52 L 01/10/18 11:55 01/10/18 12:15 01/10/18 12:25 Temperature 97.8 F Pulse Rate 81 78 Respiratory Rate 18 18 18 Blood Pressure 130/61 114/56 L 01/10/18 12:33 01/10/18 12:40 01/10/18 12:48 Temperature 98.0 F Pulse Rate 79 81 Respiratory Rate 20 18 Blood Pressure 103/49 L 117/53 L 113/62 01/10/18 13:25 01/10/18 20:15 01/11/18 00:14 Temperature 97.3 F L 99.0 F 97.6 F Pulse Rate 74 76 62 Respiratory Rate 18 18 18 Blood Pressure 112/56 L 121/54 L 119/62 01/11/18 02:15 01/11/18 04:11 01/11/18 06:25 Temperature 98.1 F Pulse Rate 56 L Respiratory Rate 18 18 18 Blood Pressure 120/75 01/11/18 06:26 Temperature Pulse Rate Respiratory Rate 18 Blood Pressure Intake & Output 01/10/18 01/11/18 01/11/18 18:59 06:59 18:59 Intake Total 1000 / 1000 Balance 1000 / 1000 Weight 136.078 kg Intake: IV 1000 / 1000 LR 1000 mL Inj 1,000 ML @ 150 1000 / 1000 mls/hr IV.CONT .Q6H40M [facility] Rx#: [id number] Result Diagrams: 01/11/18 05:25 Objective Remarks: GENERAL: Well-nourished, well-developed patient. CARDIOVASCULAR: Regular rate and rhythm without murmurs, gallops, or rubs. RESPIRATORY: Breath sounds equal bilaterally. No accessory muscle use. ABDOMEN/GI: Abdomen soft, non-tender, bowel sounds present. Incision: covered in bandage Fundus: Firm, non-tender at umbilicus. GENITOURINARY: Light to moderate bleeding. EXTREMITIES: No cyanosis or edema, non-tender, without signs of DVT. Medications and IVs: Active Medications Acetaminophen (Tylenol) 650 mg PO Q4H PRN PRN Reason: PAIN SCALE 1 TO 2 Benzocaine (Americaine 20% [place]) 1 spray TOPICAL Q4H PRN PRN Reason: For Perineum Discomfort Citric Acid/Sodium Citrate (Sodium Citrate/Citric Acid Liq) 30 ml PO [employer] [facility] Stop: 01/14/18 09:29 Diphenhydramine HCl (Benadryl) 50 mg PO Q6H PRN PRN Reason: MILD TO MODERATE ITCHING Stop: 01/11/18 10:45 Diphenhydramine HCl (Benadryl Inj) 25 mg IV.PUSH Q6H PRN PRN Reason: MILD TO MODERATE ITCHING Stop: 01/11/18 10:45 Diphtheria/Pertussis/Tetanus Vacc (Boostrix Vaccine Inj) 0.5 ml IM .ONCE ONE Stop: 01/11/18 16:01 Lactated Ringer's (Lr 1000 Ml Inj) 1,000 mls @ 100 mls/hr IV.CONT .Q10H [facility] Stop: 01/11/18 12:47 Last Admin: 01/11/18 04:45 Dose: Not Given Oxytocin (Pitocin 30 Units/Ns 500 Ml Premix) 30 units in 500 mls @ 100 mls/hr IV.SIG UNSCH PRN PRN Reason: Heavy bleeding Ibuprofen (Motrin) 800 mg PO Q8H PRN PRN Reason: For Cramping Last Admin: 01/11/18 04:11 Dose: 800 mg Measles/Mumps/Rubella Vaccine Live (M-M-R Ii Vaccine Inj) 0.5 ml SQ .ONCE ONE Stop: 01/11/18 16:01 Miscellaneous Information ([facility] Nursing Information) 1 each OTHER UNSCH PRN PRN Reason: SEE LABEL COMMENTS Stop: 01/11/18 10:45 Miscellaneous Information (Misc Nursing Information) 1 each OTHER UNSCH PRN PRN Reason: SEE LABEL COMMENTS Stop: 01/11/18 10:45 Naloxone HCl (Narcan Inj) 0.4 mg IV.PUSH UNSCH PRN PRN Reason: SEE LABEL COMMENTS Stop: 01/11/18 10:45 Ondansetron HCl (Zofran Odt) 4 mg PO Q6H PRN PRN Reason: NAUSEA OR VOMITING Oxycodone/Acetaminophen (Percocet 5/325 Mg) 2 tab PO Q4H PRN PRN Reason: PAIN SCALE 6 TO 10 Last Admin: 01/11/18 04:11 Dose: 2 tab Oxycodone/Acetaminophen (Percocet 5/325 Mg) 1 tab PO Q4H PRN PRN Reason: PAIN SCALE 3 TO 5 Senna/Docusate Sodium (Rosanne-Colace) 1 tab PO BID JOE Sodium Chloride (Ns Flush) 2 ml IV.FLUSH BID JOE Sodium Chloride (Ns Flush) 2 ml IV.FLUSH PRN PRN PRN Reason: FLUSH AFTER USING IV ACCESS [place]/Glycerin (Tucks Pads) 1 applicatio RECTAL QID PRN PRN Reason: HEMORRHOIDS Zolpidem Tartrate (Ambien) 5 mg PO HS PRN PRN Reason: SLEEP Assessment and Plan - Diagnosis (1) Delivery by section for breech presentation Code(s): O32.1XX0 - Maternal care for breech presentation, not applicable or unspecified Status: Acute - Plan 27 yo female s/p C/S due to breech presentation, POD 1 - AFVSS - Continue routine care - Motrin and Percocet PRN pain - Encourage OOB - Pelvic rest x 6 wks. Will need 1 week incision check. - Contraception: s/p tubal ligation - Anticipate D/C 1-[address] Bryant
[2018-01-11] MEDS: Senna/Docusate Sodium 8.6/50 MG Tablet PO SCH ×2 (09:44→21:08)
[2018-01-11] MEDS ORDERED: Diphtheria/Tetanus/Pertussis Vaccine Inj 0.5 ML Syringe IM ONE (16:00)
[2018-01-11] MEDS ORDERED: Measles/Mumps/Rubella Vaccine Inj 0.5 ML Vial SQ ONE (16:00)
--- NOTE | 2018-01-12 08:35 | P.PNOB ---
Subjective Interval history: 27 year old female s/p C/S at 37 wks gestation, POD2. AFVSS. Patient reports she is feeling well. Bleeding is decreasing and pain is well- controlled. She is breast feeding and bonding well with baby. Ambulating without difficulties. She is tolerating a diet without nausea or vomiting. She has not had a bowel movement. She has passed gas. Denies chest pain, dysuria, shortness of breath, or calf pain. Objective Vital Signs/I&O: Vital Signs 01/11/18 11:00 01/11/18 20:00 Temperature 98.3 F 98.2 F Pulse Rate 95 H 70 Respiratory Rate 18 18 Blood Pressure 134/60 143/62 H Result Diagrams: 01/11/18 05:25 Objective Remarks: GENERAL: Well-nourished, well-developed patient. CARDIOVASCULAR: Regular rate and rhythm without murmurs, gallops, or rubs. RESPIRATORY: Breath sounds equal bilaterally. No accessory muscle use. ABDOMEN/GI: Abdomen soft, non-tender, bowel sounds present. Incision: Clean, dry and intact. Fundus: Firm, non-tender at umbilicus. GENITOURINARY: Light to moderate bleeding. EXTREMITIES: No cyanosis or edema, non-tender, without signs of DVT. 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 Stop: 01/14/18 09:29 Oxytocin (Pitocin 30 Units/Ns 500 Ml Premix) 30 units in 500 mls @ 100 mls/hr IV.SIG UNSCH PRN PRN Reason: Heavy bleeding Ibuprofen (Motrin) 800 mg PO Q8H PRN PRN Reason: For Cramping Last Admin: 01/12/18 06:11 Dose: 800 mg Ondansetron HCl (Zofran Odt) 4 mg PO Q6H PRN PRN Reason: NAUSEA OR VOMITING Oxycodone/Acetaminophen (Percocet 5/325 Mg) 2 tab PO Q4H PRN PRN Reason: PAIN SCALE 6 TO 10 Last Admin: 01/11/18 23:36 Dose: 2 tab Oxycodone/Acetaminophen (Percocet 5/325 Mg) 1 tab PO Q4H PRN PRN Reason: PAIN SCALE 3 TO 5 Last Admin: 01/12/18 06:12 Dose: 1 tab Senna/Docusate Sodium (Rosanne-Colace) 1 tab PO BID [facility] Last Admin: 01/11/18 21:08 Dose: 1 tab Sodium Chloride (Ns Flush) 2 ml IV.FLUSH BID [facility] Last Admin: 01/12/18 04:29 Dose: Not Given Sodium Chloride (Ns Flush) 2 ml IV.FLUSH PRN PRN PRN Reason: FLUSH AFTER USING IV ACCESS [place]/Glycerin (Tucks Pads) 1 applicatio RECTAL QID PRN PRN Reason: HEMORRHOIDS Zolpidem Tartrate (Ambien) 5 mg PO HS PRN PRN Reason: SLEEP Assessment and Plan - Diagnosis (1) Delivery by section for breech presentation Code(s): O32.1XX0 - Maternal care for breech presentation, not applicable or unspecified Status: Acute - Plan 27 yo female s/p C/S due to breech presentation, POD 2 - AFVSS - Continue routine care - Motrin and Percocet PRN pain - Encourage OOB - Pelvic rest x 6 wks. Will need 1 week incision check. - Contraception: s/p tubal ligation - Anticipate D/C today dwJanice Dudley
[2018-01-12] MEDS: Senna/Docusate Sodium 8.6/50 MG Tablet PO SCH (10:34)
== END 2018-01-12 11:56 | disposition home or self-care (01) ==
LOC: HOBED 07:56 → H2E 08:58 → H1EA 10:15
PROVIDERS: ADMIT Obstetrics & Gynecology; ATTEND Obstetrics & Gynecology